=== PATIENT | male | born 1955 | race Caucasian/White ===

== ENCOUNTER → 2018-07-05 13:51 | Outpatient (CLI) | payer OTHER, SELFPAY ==
[2018-07-05 14:58] LABS: Add Manual Diff / Slide Review NO; Basophils Percent Auto 1.2 % (0-2); Eosinophils Percent Auto 2.2 % (2-4); Hematocrit 46.5 % (41-53); Hemoglobin 15.1 g/dL (13.5-17.5); Lymphocytes Percent Auto 18.9 % (25-40); Mean Corpuscular HGB Conc 32.5 % (30-36); Mean Corpuscular Hemoglobin 27.3 PG (26-34); Monocytes Percent Auto 10.7 % (3-14); Neutrophils Absolute Auto 5800 /uL (3000-5900); Platelet Count 278 X10^3/uL (150-400); Red Blood Cell Count 5.54 X10^6/uL (4.5-5.9); Red Cell Distribution Width 14.7 % (11.6-14.8); White Blood Cell Count 8.7 X10^3/uL (4.5-11.0)
[2018-07-05 15:09] LABS: Alanine Aminotransferase 36 IU/L (21-72); Albumin 4.1 g/dL (3.5-5.0); Albumin Globulin Ratio 1.1 (1.0-2.8); Alkaline Phosphatase 114 U/L (38-126); Aspartate Aminotransferase 20 IU/L (17-59); BUN Creatinine Ratio 18.8 (6-22); Bilirubin Total 0.4 mg/dL (0.2-1.3); Blood Urea Nitrogen 15 mg/dL (9-20); Calcium 9.5 mg/dL (8.4-10.2); Carbon Dioxide 26 mmol/L (22-32); Chloride 104 mmol/L (98-107); Estimated Glomerular Filt Rate > 60.0 mL/min (>60); Globulin 3.7 g/dL (1.7-4.1); Glucose 320 mg/dL (80-110); HEMOLYSIS 31 (0-50); Potassium 4.5 mmol/L (3.4-5.1); Sodium 141 mmol/L (137-145); Total Protein 7.8 g/dL (6.3-8.2)
== END ==
PROVIDERS: Family Provider Family Medicine; PCP Family Medicine; Visit Provider Family Medicine
DX: K51.90 Ulcerative colitis, unspecified, without complications (principal)
CPT/HCPCS: 36415; 80053; 85025

== ENCOUNTER → 2019-06-17 14:35 | Outpatient (CLI) | payer OTHER, SELFPAY ==
[2019-06-17 15:33] LABS: Add Manual Diff / Slide Review NO; Basophils Absolute Auto 100 /uL (0-100); Basophils Percent Auto 1.2 % (0-2); Eosinophils Absolute Auto 200 /uL (0-450); Eosinophils Percent Auto 1.4 % (2-4); Hematocrit 45.4 % (41-53); Hemoglobin 14.8 g/dL (13.5-17.5); Lymphocytes Absolute Auto 1800 /uL (1100-4500); Lymphocytes Percent Auto 15.1 % (25-40); Mean Corpuscular HGB Conc 32.5 % (30-36); Mean Corpuscular Volume 83.1 fL (80-100); Monocytes Absolute Auto 800 /uL (0-900); Monocytes Percent Auto 6.7 % (3-14); Neutrophils Absolute Auto 8800 /uL (1500-7000); Neutrophils Percent Auto 75.6 % (50-75); Platelet Count 320 X10^3/uL (150-400); Red Blood Cell Count 5.46 X10^6/uL (4.5-5.9); Red Cell Distribution Width 14.3 % (11.6-14.8); White Blood Cell Count 11.6 X10^3/uL (4.5-11.0)
[2019-06-17 16:01] LABS: Alanine Aminotransferase 21 IU/L (21-72); Albumin Globulin Ratio 1.1 (1.0-2.8); Alkaline Phosphatase 92 U/L (38-126); Aspartate Aminotransferase 16 IU/L (17-59); BUN Creatinine Ratio 22.9 (6-22); Bilirubin Total 0.6 mg/dL (0.2-1.3); Blood Urea Nitrogen 16 mg/dL (9-20); Calcium 9.1 mg/dL (8.4-10.2); Carbon Dioxide 20 mmol/L (22-32); Chloride 103 mmol/L (98-107); Estimated Glomerular Filt Rate > 60.0 mL/min (>60); Globulin 3.8 g/dL (1.7-4.1); Glucose 315 mg/dL (80-110); HEMOLYSIS < 15 (0-50); Potassium 4.9 mmol/L (3.4-5.1); Sodium 135 mmol/L (137-145); Total Protein 7.8 g/dL (6.3-8.2)
== END ==
PROVIDERS: PCP Family Medicine; Visit Provider Physician Assistant
DX: K51.90 Ulcerative colitis, unspecified, without complications (principal)
CPT/HCPCS: 36415; 80053; 85025

== ENCOUNTER → 2019-06-18 07:03 | Outpatient (CLI) | payer OTHER, SELFPAY | LOC: LAB 07:04 | PROVIDERS: PCP Family Medicine; Visit Provider Internal Medicine Gastroenterology | DX: K51.90 Ulcerative colitis, unspecified, without complications (principal) | CPT/HCPCS: 87493 ==

== ENCOUNTER → 2019-08-20 06:49 | Outpatient (CLI) | payer OTHER, SELFPAY ==
[2019-08-31 16:40] LABS: Calprotectin, Stool 398.4 mcg/g
== END ==
PROVIDERS: PCP Family Medicine; Visit Provider Internal Medicine Gastroenterology
DX: K51.90 Ulcerative colitis, unspecified, without complications (principal)
CPT/HCPCS: 83993

== ENCOUNTER → 2019-10-08 06:56 | Outpatient (CLI) | payer OTHER, SELFPAY ==
[2019-10-08 09:45] LABS: Hepatitis B Surface Antigen NEGATIVE s/c (NEGATIVE)
[2019-10-10 15:04] LABS: Hepatitis A Antibody Total Nonreactive (Nonreactive); Hepatitis B Core Antibody Nonreactive (Nonreactive)
[2019-10-10 15:17] LABS: Hepatitis B Surf AB Imm QUANT < 5 mIU/mL (> 9)
[2019-10-12 12:18] LABS: Mitogen-NIL 0.84 IU/mL; NIL 0.01 IU/mL; QuantiFERON TB NEGATIVE (Negative); TB1-NIL < 0.01 IU/mL; TB2-NIL < 0.01 IU/mL
== END ==
LOC: LAB 06:58
PROVIDERS: PCP Family Medicine; Visit Provider Internal Medicine Gastroenterology
DX: K51.90 Ulcerative colitis, unspecified, without complications (principal)
CPT/HCPCS: 36415; 86140; 86480; 86704; 86706; 86708; 87340

== ENCOUNTER 2019-12-27 20:54 | Emergency (ER) | payer OTHER, SELFPAY ==
[2019-12-27 21:01] VITALS: BP 186/100; PULSE 102; RESP 16; TEMP 36.4; O2SAT 98; BMI 42.3
--- NOTE | 2019-12-27 21:06 | ED_ITS ---
HPI - Chest Pain General Chief Complaint: Chest Pain Stated Complaint: heart missing beats Time Seen by Provider: 12/27/19 21:05 Source: patient Mode of arrival: Ambulatory History of Present Illness HPI narrative: 64-year-old gentleman with a history of steroid-dependent ulcerative colitis and factor 5 Leiden deficiency on no anticoagulants presents with an irregular heart rate. He states he began doing the keto diet about 5 days ago and has been doing well with that. As part of his nutrition plan he was simply checking his heart rate and noticed there were some irregularities and was checking his pulse late this afternoon continued after dinner. If he had not specifically checked his pulse he would not have had any symptoms or any recognition that there is anything different. He reports no fever, cough, chills, dyspnea, no change to his baseline lower extremity edema, no change in his bowels. Related Data Allergies Allergy/AdvReac Type Severity Reaction Status Date / Time No Known Allergies Allergy Uncoded 12/27/19 21:03 Review of Systems Review of Systems Narrative: All systems reviewed and are unremarkable except as noted in HPI and below Patient History Medical History Factor V Leiden (Acute) Ulcerative colitis (Acute) tobacco type: vaping Substance Use Type: does not use Exam Narrative Exam Narrative: General: Healthy appearing, in no acute distress. Able to give a complete and coherent history. Well-nourished well-developed HEENT: Moist mucous membranes, normal sclera with reactive pupils, Neck: No JVD, supple Respiratory: Lungs are clear to auscultation, no wheezing no rales no rhonchi. Full and symmetrical air movement Cardiac: Regular rate and rhythm no murmurs no bruits, occasional premature beat Abdomen: Soft nontender good bowel tones, no flank pain Skin: Warm and dry, no rashes Neurologic: Grossly neurologically intact with no obvious asymmetries or abnor malities Extremities: No trauma, well perfused, chronic stable 1+ edema without venous stasis changes Psych: Cooperative, appropriate insight and affect Initial Vital Signs Initial Vital Signs: Vital Signs Temperature 97.6 F 12/27/19 21:01 Pulse Rate 102 H 12/27/19 21:01 Respiratory Rate 16 12/27/19 21:01 Blood Pressure 186/100 H 12/27/19 21:01 Pulse Oximetry 98 12/27/19 21:01 Course Orders Ordered: ED Orders 12/27/19 21:03 EKG-12 Lead Stat 12/27/19 21:05 Complete Blood Count AUTO DIFF Stat Comprehensive Metabolic Panel Stat D Dimer Stat Lipase Stat Troponin & CK Cardiac Panel Stat 12/27/19 21:12 XR chest 1V Stat Vital Signs Vital signs: Vital Signs - 8 hr 12/27/19 21:01 Temperature 97.6 F Pulse Rate 102 H Respiratory Rate 16 Blood Pressure 186/100 H Pulse Oximetry 98 MDM - Chest Pain Lab Data Result diagrams: 12/27/19 21:05 12/27/19 21:05 Labs: Lab Results 12/27/19 12/27/19 12/27/19 Range/Units 21:05 21:05 21:05 WBC 13.9 H (4.5-11.0) X10^3/uL RBC 5.41 (4.5-5.9) X10^6/uL Hgb 11.2 L (13.5-17.5) g/dL Hct 37.0 L (41-53) % MCV 68.4 L (80-100) fL MCH 20.7 L (26-34) PG MCHC 30.4 (30-36) % RDW 18.6 H (11.6-14.8) % Plt Count 352 (150-400) X10^3/uL Neut % (Auto) 69.0 (50-75) % Lymph % (Auto) 19.2 L (25-40) % [place] % (Auto) 9.7 (3-14) % Eos % (Auto) 0.8 L (2-4) % Baso % (Auto) 1.3 (0-2) % Neut # (Auto) 9600 H (1675-9086) /uL Lymph # (Auto) 2700 (0282-7819) /uL [place] # (Auto) 1400 H (0-900) /uL Eos # (Auto) 100 (0-450) /uL Baso # (Auto) 200 H (0-100) /uL RBC Morphology See below Hypochromasia 2+ H Anisocytosis 2+ H Ovalocytes 1+ H D-Dimer 352 H (<230) ng/mL Sodium 139 (137-145) mmol/L Potassium 3.6 (3.4-5.1) mmol/L Chloride 102 (98-107) mmol/L Carbon Dioxide 27 (22-32) mmol/L BUN 20 (9-20) mg/dL Creatinine 0.70 (0.66-1.25) mg/dL Estimated GFR > 60.0 (>60) mL/min BUN/Creatinine Ratio 28.6 H (6-22) Glucose 161 H (80-110) mg/dL Calcium 9.4 (8.4-10.2) mg/dL Total Bilirubin 0.4 (0.2-1.3) mg/dL AST 26 (17-59) IU/L ALT 25 (<50) IU/L Alkaline Phosphatase 62 (38-126) U/L Total Creatine Kinase 64 (55-170) U/L CK-MB (CK-2) TNP CK-MB (CK-2) Rel Index TNP Troponin I < 0.012 (0.01-0.034) ng/mL Total Protein 8.2 (6.3-8.2) g/dL Albumin 4.2 (3.5-5.0) g/dL Globulin 4.0 (1.7-4.1) g/dL Albumin/Globulin Ratio 1.1 (1.0-2.8) Lipase 33 (23-300) U/L D-dimer is age corrected appropriate and suggests low risk for pulmonary embolism Mild leukocytosis without left shift ECG Data Attestation: I personally reviewed and interpreted this ECG as follows: Interpretation: Sinus rhythm at a rate of 96 with occasional PVC. No ischemia. Normal axis MDM Narrative Medical decision making narrative: Patient presents with an irregular heartbeat that he noted while checking his pulse rate. Completely asymptomatic. EKG confirms PVCs. Labs are unremarkable. He is safe for home discharge at this time there is no evidence of acute coronary syndrome, congestive heart failure, pneumothorax, pulmonary embolism, infectious disease as an etiology. Discharge Plan Departure Patient Disposition: Home Clinical Impression: Asymptomatic PVCs Instructions: Premature Ventricular Beats Activity Restrictions/Additional Instructions: Thank you for coming in this evening. It is very reasonable to have an irregular heartbeat checked out. Fortunately, you're having PVCs (premature ventricular contractions). These are not a sign of any impending worsening symptoms or heart attack. They can be annoying if you can feel the extra beats. They are not dangerous. We did do a thorough workup for additional cardiac issues, blood clots and infection and found no evidence of any of these things this evening. It is safe for you to go home. You may continue to notice an irregular heart rate and as long as you are not short of breath, developing chest pain or other symptoms it is okay to simply ignore these. I wish you the best Referrals: Mart Ramos MD [Primary Care Provider] -
--- NOTE | 2019-12-27 21:12 | DI.RAD.S_ITS ---
PROCEDURE: XR CHEST 1V INDICATIONS: palpitations TECHNIQUE: One view of the chest was acquired. COMPARISON: None. FINDINGS: Surgical changes and devices: None. Lungs and pleura: Lungs are abnormal with a mild interstitial prominence. Left lung volume appears large, right lung volume is less pronounced and partially reduced by mild elevation of the right hemidiaphragm.. No pleural effusions or pneumothorax. Mediastinum: Mediastinal contours appear normal. Heart size is normal. Bones and chest wall: No suspicious bony lesions. Overlying soft tissues appear unremarkable. IMPRESSION: No pneumonia found. Suspect COPD. Prior smoking history is the likely cause for the airspace findings of mild interstitial prominence in the setting of relatively large lung volumes. Dictated by: Roberto Carlos Matthews M.D. on 12/27/2019 at 21:46 Approved by: Roberto Carlos Matthews M.D. on 12/27/2019 at 21:47
--- NOTE | 2019-12-27 21:14 | PC.NURSE ---
Pt denies any chest pain, states when checked pulse in wrist felt heart skipping. denies any feelings in chest. Denies dizziness, denies any cardiac history.
[2019-12-27 21:28] LABS: Add Manual Diff / Slide Review NO; Basophils Absolute Auto 200 /uL (0-100); Basophils Percent Auto 1.3 % (0-2); Eosinophils Absolute Auto 100 /uL (0-450); Eosinophils Percent Auto 0.8 % (2-4); Hemoglobin 11.2 g/dL (13.5-17.5); Lymphocytes Absolute Auto 2700 /uL (1100-4500); Lymphocytes Percent Auto 19.2 % (25-40); Mean Corpuscular HGB Conc 30.4 % (30-36); Mean Corpuscular Hemoglobin 20.7 PG (26-34); Mean Corpuscular Volume 68.4 fL (80-100); Monocytes Absolute Auto 1400 /uL (0-900); Monocytes Percent Auto 9.7 % (3-14); Neutrophils Absolute Auto 9600 /uL (1500-7000); Platelet Count 352 X10^3/uL (150-400); Red Blood Cell Count 5.41 X10^6/uL (4.5-5.9); Red Cell Distribution Width 18.6 % (11.6-14.8); White Blood Cell Count 13.9 X10^3/uL (4.5-11.0)
[2019-12-27 21:31] LABS: Alanine Aminotransferase 25 IU/L (<50); Albumin 4.2 g/dL (3.5-5.0); Albumin Globulin Ratio 1.1 (1.0-2.8); Alkaline Phosphatase 62 U/L (38-126); Aspartate Aminotransferase 26 IU/L (17-59); BUN Creatinine Ratio 28.6 (6-22); Bilirubin Total 0.4 mg/dL (0.2-1.3); Blood Urea Nitrogen 20 mg/dL (9-20); Calcium 9.4 mg/dL (8.4-10.2); Carbon Dioxide 27 mmol/L (22-32); Chloride 102 mmol/L (98-107); Creatine Kinase 64 U/L (55-170); Estimated Glomerular Filt Rate > 60.0 mL/min (>60); Glucose 161 mg/dL (80-110); HEMOLYSIS < 15 (0-50); Lipase 33 U/L (23-300); Potassium 3.6 mmol/L (3.4-5.1); Sodium 139 mmol/L (137-145); Total Protein 8.2 g/dL (6.3-8.2)
[2019-12-27 21:34] LABS: D Dimer 352 ng/mL (<230)
[2019-12-27 21:43] LABS: Troponin I < 0.012 ng/mL (0.01-0.034)
[2019-12-27 21:45] LABS: Anisocytosis 2+; Hypochromasia 2+; Ovalocytes 1+
[2019-12-27 22:30] VITALS: BP 135/75; PULSE 87; RESP 14; O2SAT 96
== END 2019-12-27 22:03 | disposition home or self-care (01) ==
PROVIDERS: Emergency Provider Emergency Medicine; PCP Family Medicine
DX: I49.3 Ventricular premature depolarization (principal); K51.90 Ulcerative colitis, unspecified, without complications; D68.51 Activated protein C resistance
CPT/HCPCS: 36415; 71045; 80053; 82550; 83690; 84484; 85025; 85379; 93005; 99284

== ENCOUNTER 2020-01-25 23:14 | Inpatient (IN) | payer OTHER, SELFPAY ==
[2020-01-25 23:22] VITALS: BP 173/91; PULSE 115; RESP 22; TEMP 36.4; O2SAT 95; BMI 39.4
--- NOTE | 2020-01-25 23:34 | DI.CT.S_ITS ---
PROCEDURE: CT ABDOMEN PELVIS W CON INDICATIONS: periumbilical severe pain TECHNIQUE: After the administration of intravenous contrast, 5 mm thick sections acquired from the diaphragm to the symphysis. 5 mm coronal and sagittal reformats were acquired. For radiation dose reduction, the following was used: automated exposure control, adjustment of mA and/or kV according to patient size. COMPARISON: None. FINDINGS: Image quality: Excellent. ABDOMEN: Lung bases: Lung bases are clear. Heart size is normal. Solid organs: Liver is normal in size and enhancement. Gallbladder contains multiple calcified gallstones, a number of which measure slightly greater than 1 cm in diameter. Biliary system is non dilated. Pancreas enhances normally. Spleen is normal in size and enhancement. No adrenal nodules. Kidneys demonstrate normal size and enhancement, without hydronephrosis. There is a 4 mm nonobstructing right lower pole stone. Peritoneum and bowel: An incarcerated loop of small bowel in a very small periumbilical hernia results in early small bowel obstruction. The small bowel loops are dilated to 3.4 cm. Nodes and vessels: No retroperitoneal or mesenteric adenopathy by size criteria. Aorta and inferior vena cava are normal in size. Miscellaneous: A small periumbilical hernia contains a single loop of incarcerated small bowel resulting in small bowel obstruction. There is very mild inflammatory change in the surrounding fat. PELVIS: Genitourinary: Bladder wall thickness is normal. There is a small posterior lateral left diverticulum of the bladder. Miscellaneous: No inguinal hernias or adenopathy. Bones: No suspicious bony lesions. No vertebral body compression fractures. IMPRESSION: 1. There is a very small periumbilical hernia containing incarcerated small bowel resulting in early small bowel obstruction. 2. Cholelithiasis. 3. Incidental right renal stone. Comment: Final report is concordant with preliminary interpretation provided by [facility]. Dictated by: Manuelito Jackson M.D. on 01/26/2020 at 8:04 Approved by: Manuelito Jackson M.D. on 01/26/2020 at 8:07
[2020-01-26] VITALS (24 sets, daily range): BP systolic 135–187; BP diastolic 71–99; PULSE 74–107; RESP 13–23; TEMP 36.2–37.3; O2SAT 86–97; BMI 39.4; BMI 40.6
--- NOTE | 2020-01-26 | PATH_ITS ---
[facility] Accession Number: [id number] . 01 Material submitted: . small bowel - SMALL BOWEL SEGMENT . 01 Clinical history: . LUMP IN LOWER STOMACH PAIN . 02 Diagnosis: Small Bowel, Segmental Resection: Segment of small bowel with ischemic enteritis. Histologically viable margins of resection. No evidence of neoplasm. [facility] 01/28/2020 1204 Local . 02 Electronically signed: . Miko Grider MD, PhD, Pathologist NPI- [id number] . 01 Gross description: . Received in formalin, labeled small bowel segment, is an unoriented segment of small bowel (length-11.7 cm, resection margin #1 diameter-2.0 cm, resection margin #2 diameter-2.7 cm) with attached adipose tissue (up to 2.5 cm in depth). The resection margins are received stapled. The serosa is pale tee and focally dark red-brown. The mucosa is tee and focally dark red-brown with normal folds and flattened areas. The dark red-brown area (approximately 6.5 cm long) is thin and semi-translucent. No nodules, masses or lesions are identified. The resection margins are inked blue. Section code: (A1) resection margin #1, longitudinal business office representative; (A2) resection margin #2, business office representative longitudinal sections; (A3, A4) business office representative serial sections submitted from resection margin #1 to #2. ([id number]) /V 01/27/2020 1242 Local . 02 Pathologist provided ICD-10: K55.9 . 02 CPT . 269019 Performed at: [address], [place], [place] [id number] MD Juan Moe MD Phone: [phone] Performed at: 02 [facility] [address] [place] [id number] MD Amanda Navarrete MD Phone: [phone]
[2020-01-26] MEDS: MORPHINE 4 MG/ML INJ IV ×2 (00:01→01:29)
[2020-01-26 00:02] LABS: Add Manual Diff / Slide Review NO; Basophils Absolute Auto 100 /uL (0-100); Basophils Percent Auto 0.6 % (0-2); Eosinophils Absolute Auto 100 /uL (0-450); Eosinophils Percent Auto 0.5 % (2-4); Hematocrit 39.2 % (41-53); Hemoglobin 11.7 g/dL (13.5-17.5); Lymphocytes Absolute Auto 1100 /uL (1100-4500); Mean Corpuscular HGB Conc 29.9 % (30-36); Mean Corpuscular Volume 66.9 fL (80-100); Monocytes Absolute Auto 1400 /uL (0-900); Monocytes Percent Auto 7.6 % (3-14); Neutrophils Absolute Auto 15900 /uL (1500-7000); Neutrophils Percent Auto 85.3 % (50-75); Platelet Count 354 X10^3/uL (150-400); Red Blood Cell Count 5.86 X10^6/uL (4.5-5.9); Red Cell Distribution Width 19.5 % (11.6-14.8); White Blood Cell Count 18.7 X10^3/uL (4.5-11.0)
[2020-01-26] MEDS: SODIUM CHLORIDE 0.9% 1,000 ML 1000 ML IV (00:02)
[2020-01-26] MEDS: ONDANSETRON 4 MG/2 ML INJ IV (00:02)
--- NOTE | 2020-01-26 00:09 | ED.ABDPAIN ---
HPI - Abdominal Pain General Chief Complaint: Abdominal Pain Stated Complaint: Lump in lower stomach pain Time Seen by Provider: 01/25/20 23:25 Source: patient Mode of arrival: Ambulatory Limitations: no limitations History of Present Illness HPI narrative: HPI: The patient is a 64-year-old male who has a history of ulcerative colitis presents to the emergency department with severe periumbilical abdominal pain. He describes the pain as a spastic cramp that is sharp in nature. The pain occurs intermittently and is 10/10 in intensity. He stated that the pain started on Sunday and lasted approximately 3-5 hours after which it resolved spontaneously. He was pain-free until today when he redevelop the pain and discomfort. He denies that the pain radiates anywhere. He is unaware having any hernias. He denies any surgical incisions on his abdomen. He has had no recent fall or injury. He denies smoking cigarettes but vapors. He does not drink alcohol or use any marijuana. He works as a behavioral health counselor. He denies a history of pancreatitis diabetes mellitus hypertension stroke myocardial infarction COPD asthma. He has not had his gallbladder or appendix removed. He denies any fever chills sweats headache nasal drainage sinus congestion sore throat shortness of breath cough chest pain vomiting diarrhea melena hematochezia but has had nausea. His last bowel movement was 2 days ago and normal. He denies any urinary symptoms. Related Data Allergies Allergy/AdvReac Type Severity Reaction Status Date / Time No Known Allergies Allergy Uncoded 01/26/20 01:20 Review of Systems Review of Systems Narrative: His review of systems were all negative except for those mentioned in the history of present illness. Patient History Medical History Factor V Leiden (Acute) Ulcerative colitis (Acute) tobacco type: vaping alcohol intake frequency: 0-2 drinks per day Substance Use Type: does not use Exam Narrative Exam Narrative: PHYSICAL EXAM: CONSTITUTIONAL: Awake, Alert, Oriented, Coherent, Cooperative lying supine in bed with intermittent grimacing of the face when he develops spastic pain and discomfort in his periumbilical region. The patient is obese. The patient ambulated into the emergency department into his room slowly. HEAD: AT/NC EENT: PERRL, FROM of eyes, no discharge, No epistaxis or nasal drainage Oral mucosa is moist and pink, posterior pharynx is without erythema or exudate. NECK: The patient is a very short neck bed is Supple, without any obvious JVD, Trachea is midline without stridor, no palpable LN or masses. SPINE: No gross deformity, no palpable tenderness of the cervical, thoracic or lumbar spine. There was no costovertebral angle tenderness. THORAX: No deformity, retractions, chest wall tenderness. AP diameter is increased. LUNGS: Clear with symmetrical breath sounds without respiratory distress HEART: Normal heart tones, regular rhythm and rate without murmur. ABDOMEN: Soft, with a tender lump in the superior margins of his umbilicus. There was no specific defect in the umbilicus that was palpable. There was no other organomegaly or abdominal tenderness. EXTREMITIES: There was no appreciable pretibial edema or posterior calf tenderness. SKIN: No rash, bruising, petechiae or purpura. NEURO: Awake, alert, oriented, conversive, there was no focal facial asymmetry : cranial nerves II-XII are symmetrical and moves all 4 extremities and is ambulatory Initial Vital Signs Initial Vital Signs: Vital Signs Temperature 97.5 F L 01/25/20 23:22 Pulse Rate 115 H 01/25/20 23:22 Respiratory Rate 22 01/25/20 23:22 Blood Pressure 173/91 H 01/25/20 23:22 Pulse Oximetry 95 01/25/20 23:22 Course Course Course Narrative: 0044 the patient's white blood count is 18.7, neutrophils are 15.9, GFR is greater than 60, lipase is 18, the CT scan has been completed but the report remains pending. 0100 radiology called with a critical value indicating that the patient has a periumbilical ventral wall hernia that contains small bowel and has a small-bowel obstruction. I will notify the general surgeon. Will call the general surgeon application services manager, Dr. Weeks to inform him of the CT findings 0111 I discussed the patient with Dr. Weeks , who advised admitting the patient to him by holding the patient in the emergency department for him to take directly to surgery probably in approximately 1 hour. Nursing staff informed. 0122; the patient states that he last ate at approximately 5:00 p.m. yesterday. Radiology submitted an addendum to the report discussed with me. The patient has moderate small bowel distension noted beginning in the proximal jejunum. It extends to the point of a small periumbilical hernia in the midline. This appears to be the site of a partial small bowel obstruction with small bowel hernia into the abdominal wall. The patient also has cholelithiasis without gallbladder distension. Dr. Weeks came into evaluate the patient and take the patient to surgery. Orders Ordered: ED Orders 01/25/20 23:34 CT abdomen pelvis w con Stat EKG-12 Lead Stat 01/25/20 23:50 Complete Blood Count AUTO DIFF Stat Comprehensive Metabolic Panel Stat Lipase Stat Discontinued Medications Sodium Chloride (Normal Saline 0.9%) 1,000 mls @ 1,000 mls/hr IV BOLUS ONE Stop: 01/26/20 00:33 Last Infusion: 01/26/20 01:05 Dose: 0 mls/hr Documented by: Admin: 01/26/20 00:02 Dose: 1,000 mls/hr Documented by: DANY Piperacillin/Tazobactam/Dextrose (Zosyn) 4.5 gm in 100 mls @ 200 mls/hr IV NOW ONE Stop: 01/26/20 01:36 Last Infusion: 01/26/20 02:18 Dose: 0 mls/hr Documented by: Admin: 01/26/20 01:19 Dose: 200 mls/hr Documented by: DANY Lactated Ringer's (Lactated Ringers) 1,000 mls @ 150 mls/hr IV CONT MITCHELL Last Infusion: 01/26/20 02:17 Dose: 0 mls/hr Documented by: Admin: 01/26/20 01:29 Dose: 150 mls/hr Documented by: DANY Morphine Sulfate (Morphine) 4 mg IV NOW ONE Stop: 01/25/20 23:35 Last Admin: 01/26/20 00:01 Dose: 4 mg Documented by: DANY Morphine Sulfate (Morphine) 4 mg IV NOW ONE Stop: 01/26/20 01:22 Last Admin: 01/26/20 01:29 Dose: 4 mg Documented by: DANY Ondansetron HCl (Zofran) 4 mg IV NOW ONE Stop: 01/25/20 23:35 Last Admin: 01/26/20 00:02 Dose: 4 mg Documented by: DANY Vital Signs Vital signs: Vital Signs - 8 hr 01/25/20 23:22 01/26/20 00:35 01/26/20 00:52 Temperature 97.5 F L Pulse Rate 115 H 99 H Respiratory Rate 22 20 Blood Pressure 173/91 H Blood Pressure [Right Arm] 160/99 H Pulse Oximetry 95 94 97 01/26/20 01:34 Temperature Pulse Rate 101 H Respiratory Rate 23 Blood Pressure Blood Pressure [Right Arm] 187/93 H Pulse Oximetry 97 MDM - Abdominal Pain Medical Records Attestation: I reviewed the patient's medical records. Lab Data Attestation: I reviewed the patient's lab results. Result diagrams: 01/25/20 23:50 01/25/20 23:50 Labs: Lab Results 01/25/20 01/25/20 Range/Units 23:50 23:50 WBC 18.7 H (4.5-11.0) X10^3/uL RBC 5.86 (4.5-5.9) X10^6/uL Hgb 11.7 L (13.5-17.5) g/dL Hct 39.2 L (41-53) % MCV 66.9 L (80-100) fL MCH 20.0 L (26-34) PG MCHC 29.9 L (30-36) % RDW 19.5 H (11.6-14.8) % Plt Count 354 (150-400) X10^3/uL Neut % (Auto) 85.3 H (50-75) % Lymph % (Auto) 6.0 L (25-40) % [place] % (Auto) 7.6 (3-14) % Eos % (Auto) 0.5 L (2-4) % Baso % (Auto) 0.6 (0-2) % Neut # (Auto) 03944 H (7220-6294) /uL Lymph # (Auto) 1100 (8881-4792) /uL [place] # (Auto) 1400 H (0-900) /uL Eos # (Auto) 100 (0-450) /uL Baso # (Auto) 100 (0-100) /uL RBC Morphology See below Hypochromasia 2+ H Poikilocytosis 1+ H Anisocytosis 1+ H Microcytosis 1+ H Sodium 138 (137-145) mmol/L Potassium 3.6 (3.4-5.1) mmol/L Chloride 101 (98-107) mmol/L Carbon Dioxide 27 (22-32) mmol/L BUN 18 (9-20) mg/dL Creatinine 0.86 (0.66-1.25) mg/dL Estimated GFR > 60.0 (>60) mL/min BUN/Creatinine Ratio 20.9 (6-22) Glucose 208 H (80-110) mg/dL Calcium 9.5 (8.4-10.2) mg/dL Total Bilirubin 0.6 (0.2-1.3) mg/dL AST 38 (17-59) IU/L ALT 59 H (<50) IU/L Alkaline Phosphatase 73 (38-126) U/L Total Protein 8.4 H (6.3-8.2) g/dL Albumin 4.5 (3.5-5.0) g/dL Globulin 3.9 (1.7-4.1) g/dL Albumin/Globulin Ratio 1.2 (1.0-2.8) Lipase 18 L (23-300) U/L Discharge Plan Departure Patient Disposition: Admitted as Observation Clinical Impression: Acute periumbilical pain, Ventral hernia with bowel obstruction Ulcerative colitis Qualifiers: Ulcerative colitis location: unspecified ulcerative colitis location Digestive disease complication type: unspecified complication Qualified Code(s): K51.919 - Ulcerative colitis, unspecified with unspecified complications Cholelithiasis Qualifiers: Cholelithiasis location: gallbladder Cholecystitis presence: without cholecystitis Biliary obstruction: without biliary obstruction Qualified Code(s): K80.20 - Calculus of gallbladder without cholecystitis without obstruction Discharge Date/Time: 01/26/20 02:19 Referrals: Mart Ramos MD [Primary Care Provider] - ED Sign-out Cosign ED Attending Cosignature Attestation: I was immediately available in the department for consultation. This documentation has been reviewed and I agree with assessment and plan. Supervised by Kulwant Barrera MD
[2020-01-26 00:13] LABS: Alanine Aminotransferase 59 IU/L (<50); Albumin 4.5 g/dL (3.5-5.0); Albumin Globulin Ratio 1.2 (1.0-2.8); Alkaline Phosphatase 73 U/L (38-126); Aspartate Aminotransferase 38 IU/L (17-59); BUN Creatinine Ratio 20.9 (6-22); Bilirubin Total 0.6 mg/dL (0.2-1.3); Blood Urea Nitrogen 18 mg/dL (9-20); Calcium 9.5 mg/dL (8.4-10.2); Carbon Dioxide 27 mmol/L (22-32); Chloride 101 mmol/L (98-107); Estimated Glomerular Filt Rate > 60.0 mL/min (>60); Globulin 3.9 g/dL (1.7-4.1); Glucose 208 mg/dL (80-110); HEMOLYSIS < 15 (0-50); Lipase 18 U/L (23-300); Potassium 3.6 mmol/L (3.4-5.1); Sodium 138 mmol/L (137-145); Total Protein 8.4 g/dL (6.3-8.2)
[2020-01-26 00:30] LABS: Anisocytosis 1+; Hypochromasia 2+; Poikilocytosis 1+
[2020-01-26 00:31] LABS: Microcytosis 1+
[2020-01-26] MEDS: PIPERACILLIN-TAZO 4.5 GM/100 ML FROZ.PIGGY IV (01:19)
[2020-01-26] MEDS: LACTATED RINGERS 1,000 ML 150 ML IV (01:29)
--- NOTE | 2020-01-26 01:39 | PC.NURSE ---
patient ambulated self into ED. States he had severe abdominal pain several days ago that resolved on his own. today the pain reoocured and the patient noticed a bump under his skin above his bellybutton. Patient states last meal about 5pm last night.
--- NOTE | 2020-01-26 01:54 | PM.HP.1 ---
History of Present Illness History of Present Illness Date Patient Seen: 01/26/20 Time Patient Seen: 01:55 Chief complaint: Lump in lower stomach pain Narrative: Vic is a 64M who presented with a small bowel obstruction secondary to an incarcerated ventral hernia. Developed abdominal pain midline superior to umbilicus over the past 72 hours and becoming increasingly severe for the past 6 hrs. Associated with nausea, no emesis, no bowel movement or flatus. No prior midline incision. WBC [address] demonstrates small bowel within a ventral hernia with associated SBO. Past medical significant for Ulcerative colitis, Obesity, factor 5 Liden. Patient History Medical History Factor V Leiden (Acute) Ulcerative colitis (Acute) Family & Social History Safety & Behavioral: Feels Safe in Current Yes Environment Tobacco & Substance use: alcohol intake frequency 0-2 drinks per day Substance Use Type does not use Meds Home Medications and Allergies Allergies Allergy/AdvReac Type Severity Reaction Status Date / Time No Known Allergies Allergy Uncoded 01/26/20 01:20 Review of Systems Review of Systems Narrative: A 10 point review of systems is negative except as noted in the HPI Exam Vital Signs (past 8 hours): - 01/25/20 23:22 01/26/20 00:35 01/26/20 00:52 Temperature 97.5 F L Pulse Rate 115 H 99 H Respiratory Rate 22 20 Blood Pressure 173/91 H Blood Pressure [Right Arm] 160/99 H Pulse Oximetry 95 94 97 01/26/20 01:34 Temperature Pulse Rate 101 H Respiratory Rate 23 Blood Pressure Blood Pressure [Right Arm] 187/93 H Pulse Oximetry 97 Oxygen Delivery Method Room Air Oxygen Flow Rate 2 Narrative Exam Narrative: General-no acute distress, obese male HEENT-moist mucous membranes, no scleral icterus Neck-supple, no lymphadenopathy Chest- non labored respirations, clear to auscultation bilaterally Cardiac-regular rate no peripheral edema Abdomen-supraumbilical ventral hernia without peritonitis unable to reduce Extremities-warm, well perfused Neurological-alert and oriented, no focal deficits Objective Labs Result Diagrams: 01/25/20 23:50 01/25/20 23:50 Labs: Laboratory Results - last 24 hr 01/25/20 01/25/20 23:50 23:50 WBC 18.7 H RBC 5.86 Hgb 11.7 L Hct 39.2 L MCV 66.9 L MCH 20.0 L MCHC 29.9 L RDW 19.5 H Plt Count 354 Neut % (Auto) 85.3 H Lymph % (Auto) 6.0 L [place] % (Auto) 7.6 Eos % (Auto) 0.5 L Baso % (Auto) 0.6 Neut # (Auto) 93729 H Lymph # (Auto) 1100 [place] # (Auto) 1400 H Eos # (Auto) 100 Baso # (Auto) 100 RBC Morphology See below Hypochromasia 2+ H Poikilocytosis 1+ H Anisocytosis 1+ H Microcytosis 1+ H Sodium 138 Potassium 3.6 Chloride 101 Carbon Dioxide 27 BUN 18 Creatinine 0.86 Estimated GFR > 60.0 BUN/Creatinine Ratio 20.9 Glucose 208 H Calcium 9.5 Total Bilirubin 0.6 AST 38 ALT 59 H Alkaline Phosphatase 73 Total Protein 8.4 H Albumin 4.5 Globulin 3.9 Albumin/Globulin Ratio 1.2 Lipase 18 L Assessment & Plan Assessment & Plan narrative: Vic is a 64-year-old male who is presenting with an incarcerated ventral hernia and associated small-bowel obstruction. I reviewed his CT which demonstrates ventral hernia and associated small bowel obstruction and laboratory studies are significant for a white blood cell count 19. I am unable to reduce the hernia. Open ventral hernia repair possible-bowel resection is indicated. I discussed the risks of the operation with him including bleeding infection recurrence anastomotic leak and the expected postoperative recovery. I told him I will examination of the viability of the small bowel should it be compromised he will require bowel resection. Repair of the ventral hernia will depend on the size of the defect and whether not bowel resection is required may or may not be repaired with mesh. His questions have been answered he is in agreement with this plan.
[2020-01-26] MEDS: LACTATED RINGERS 1,000 ML 42 ML IV ×2 (02:30→04:21)
--- NOTE | 2020-01-26 02:39 | OP_ITS ---
Operative Date/Time/Diagnoses Date of procedure: 01/26/20 Time of procedure: 04:16 Pre-op diagnosis: Incarcerated ventral Post-op diagnosis: other (Ischemic small bowel) Procedure & Clinicians Procedure: Exploratory laparotomy Small-bowel resection Ventral hernia repair Same procedure as scheduled: Yes Indications: Patient presented with a small-bowel obstruction and incarcerated ventral hernia Surgeon: Robi Weeks Click Yes if Unassisted: Yes Anesthesia Type: General Operative Notes Findings: Infarcted small bowel mid small bowel 6 cm length. Appearance of bowel consistent with chronic steroid use Specimen(s): other (Small-bowel) Estimated Blood Loss (mL): 30 Procedure in detail: Patient was brought to the operating room placed supine on the table. Bilateral lower extremity compression devices were applied. He received 3.375 g of Zosyn prior to skin incision. General anesthesia was then was induced and he was intubated with an endotracheal tube. He was prepped and draped in sterile fashion. Time-out performed ensure the correct patient procedure necessary equipment within the 1st operating room. I began with a midline supraumbilical incision. The skin subcutaneous tissues were divided. There was a knuckle of dark appearing small bowel within the midline fascia. Made the incision superiorly and entered the abdomen above this carefully elevating the fascia and sharply incising it with the knife. The abdomen was entered atraumatically. I then open the midline inferiorly towards the incarcerated small bowel. With this complete I reduced the small bowel and inspection demonstrated an infarcted 6 cm segment of mid small bowel. Healthy bowel proximal and distal to the infarction was selected and a window within the mesentery was made the bowel was divided with the Endo-MIKE stapler blue load. The segment of infarcted bowel was then resected along its mesentery using the LigaSure device passed off the field as specimen labeled small bowel. Approximating silk sutures were then placed between the 2 pieces of small bowel to form a [id number] anastomosis. An enterotomy was made in each limb of the small bowel and then a common channel was created using a 3rd load of the Endo- MIKE stapler. Inspection of the anastomosis demonstrated hemostasis as well as widely patent. I then closed the common channel using a running 3 0 PDS suture. The anastomotic line was then imbricated in a Lembert fashion using silk suture. The mesenteric defect was then closed using silk suture as well. The small bowel was then returned to the abdomen in its normal anatomical position the abdomen was irrigated using 2 L of sterile saline. The lavage came back clear. Hemostasis was achieved. Then closed the midline fascia using a running 1. PDS suture. Subcutaneous tissue was then reapproximated using 3 0 Vicryl skin closed with hair. Patient tolerated the procedure well he was extubated and transferred to the recovery room in stable condition. Complications: none Post-operative Condition: stable Disposition: Acute Care Signed By:<Electronically signed by Robi Weeks MD>01/26/20 0426
[2020-01-26] MEDS: ACETAMINOPHEN IV 1,000 MG/100 ML VIAL 400 MG IV (03:10)
--- NOTE | 2020-01-26 03:14 | SUR.OPER ---
Supine on padded OR bed, head on pillow, arms secured on padded arm boards at <90 degrees abduction, legs uncrossed, safety belt at thigh, tape over blanket over lower legs.
[2020-01-26] MEDS: BUPIVACAINE 0.25% (PF) VIAL 30 ML INJ (03:34)
--- NOTE | 2020-01-26 04:44 | SUR.PHASEI ---
Stable pacu stay, receiving rn unavailable, will call back fro report.
--- NOTE | 2020-01-26 04:54 | SUR.PHASEI ---
Pt came to PACU with NGT, attached to LIS, clear pale pink fluid, scant amount back.
--- NOTE | 2020-01-26 05:05 | SUR.PHASEI ---
RN still not available for report, RN Coordinator informed we would do face to face report in room.
--- NOTE | 2020-01-26 05:25 | SUR.PHASEI ---
Pt transported up to room 216. Left with Darlyn in stable condiiton. Pt placed on 3/l nasal cannula 02.
[2020-01-26] MEDS: HYDROMORPHONE 0.5 MG INJ IV ×3 (11:07→23:19)
[2020-01-26] MEDS: LACTATED RINGERS 1,000 ML 125 ML IV ×2 (11:07→18:35)
--- NOTE | 2020-01-26 11:52 | CM.DANOTE ---
Addendum entered by Kenyetta Beaulieu R.N. 01/27/20 13:25: Spoke to Carmen Thompson Mentioned that patient could benefit from inpatient rehab. Speech will be working with patient as well. Called Monie at [facility], rehab inpatient. Stated, patient could be a good candidate for rehab. Went ahead and faxed over latest P.T. notes, face sheet, prog notes, and H&P. She will review and updated this nurse outreach case manager. Original Note: DCP: Case received, EMR reviewed, and checked on patient. Patient sleeping at this time, post surgery. Has NG tube in place. DCP assessment was completed with information obtained by medical record. Patient is a 64 year old male who admitted early this morning to the care of the hospitalist/surgical team. PCP: Dr. Ramos. Payer: confirmed: [employer]. Patient came to the hospital via family vehicle secondary to lower abdominal pain, and lump in the lower abdominal area. Patient holds diagnosis of incarcerated ventral hernia, as well as bowel obstruction. Patient had surgery early this morning, and is currently sleeping. He has NG tube in place. Patient resides in [place], and is employed at [employer] in [facility], according to notes. There is a family member named Manny Maier as contact listed, but unclear at this time what relationship is. Patient was ambulatory in ER, but with difficulty, due to pain. P: DCP to continue to follow closely, and will be available for any resources needed. Kenyetta Beaulieu RN/Eating Disorder Psychologist
[2020-01-26] MEDS: KETOROLAC 30 MG/ML VIAL IV ×2 (12:57→21:08)
[2020-01-26] MEDS: ENOXAPARIN 40 MG/0.4 ML SYRINGE SUBCUT (12:57)
[2020-01-26] MEDS: predniSONE 5 MG TABLET 15 MG PO (12:57)
--- NOTE | 2020-01-26 23:36 | PC.NURSE ---
Addendum entered by Liat Hartman R.N. 01/27/20 06:29: Noted puddle of gastric contents on floor beside bed; leakage from pigtail; flushed with air to clear pigtail. NG put out 400cc plus what was on floor. Addendum entered by Liat Hartman R.N. 01/27/20 05:52: States pain is currently 5/10 but declines IV Dilaudid; medicated with scheduled Toradol. Addendum entered by Liat Hartman R.N. 01/26/20 23:58: Noted to desat to 88% when asleep; mouth breathing. Oxygen increased to 2L/min. Original Note: Patient is alert and oriented. Breath sounds diminished throughout; oxygen at 1L/min per NC with sat of 96%. HRR. BP elevated at 142/71. Denies nausea. NG to LIS with brown/green liquid in cannister. BT present but denies flatus. Abdomen is tender and slightly distended but soft. Denies dysuria, frequency or urgency; voiding per urinal. Dressing to midline abdomen is CDI. Complains of 5/10 soreness at incisional site; medicated with Dilaudid. Able to turn self in bed. Wearing bilateral SCD's. NPO except for ice chips. Fall risk score is moderate; bed alarm is activated.
[2020-01-27] VITALS (14 sets, daily range): BP systolic 113–158; BP diastolic 61–88; PULSE 76–92; RESP 16–20; TEMP 36.2–37.1; O2SAT 92–97
[2020-01-27] MEDS: LACTATED RINGERS 1,000 ML 125 ML IV ×2 (02:44→09:33)
[2020-01-27] MEDS: KETOROLAC 30 MG/ML VIAL IV ×3 (05:50→21:25)
[2020-01-27] MEDS: ENOXAPARIN 40 MG/0.4 ML SYRINGE SUBCUT (09:33)
[2020-01-27] MEDS: predniSONE 5 MG TABLET 15 MG PO (09:35)
--- NOTE | 2020-01-27 09:51 | PC.NURSE ---
Addendum entered by Jessica Matute R.N. 01/27/20 12:26: NG removed by Dr Weeks, Patient started on clear liquids. Original Note: Patient alert, oriented rates abdominal pain 5/10, declines pain medicine at this time. BT+ no flatus. NG clamped for four hours per Dr Weeks. Patient ambulated in alvarado with SBA gait steady.
--- NOTE | 2020-01-27 12:22 | P.PN_ITS ---
Subjective Subjective Date Patient Seen: 01/27/20 Time Patient Seen: 12:22 Interval history: + flatus. Performed clamp trial this morning for 4 hours no nausea. Ambulating pain is well controlled Exam Vital Signs (past 8 hours): - 01/27/20 05:45 01/27/20 07:43 01/27/20 08:00 Temperature 97.9 F 98.0 F Pulse Rate 76 85 Respiratory Rate 19 18 Blood Pressure 158/88 H 121/80 Pulse Oximetry 92 97 93 01/27/20 11:00 01/27/20 11:30 Temperature 97.4 F L Pulse Rate 83 Respiratory Rate 20 Blood Pressure 122/79 Pulse Oximetry 94 94 Oxygen Delivery Method Room Air Oxygen Flow Rate 0 Narrative Exam Narrative: General adult male alert oriented no acute distress Abdomen soft appropriately tender to palpation incision clean dry intact with hair Objective Labs Result Diagrams: 01/25/20 23:50 01/25/20 23:50 Assessment & Plan Post-op Postoperative Procedures: Procedures Operation Date: 01/26/20 14:30 Actual Procedures Side Surgeon p Laparotomy, Small Bowel Resection, ventral hernia repair Robi Weeks MD Postoperative status narrative: Vic is a 64-year-old male with morbid obesity ulcer colitis who presented with an incarcerated ventral hernia small-bowel obstruction. Postoperative day 1 status post exploratory laparotomy small bowel resection for infarcted small bowel. He has return of bowel function nasogas tric tube has been removed. -clear liquid diet -out of bedside chair ambulate -SCDs and Lovenox for VTE prophylaxis Quality VTE Deep Vein Thrombosis/Pulmonary Embolism Present on Admission: Yes
[2020-01-27] MEDS: HYDROMORPHONE 0.5 MG INJ IV ×2 (13:56→17:45)
[2020-01-27] MEDS: SODIUM CHLORIDE 0.9% FLUSH 10 ML IV (21:26)
[2020-01-28] MEDS: KETOROLAC 30 MG/ML VIAL IV (05:34)
[2020-01-28 06:00] VITALS: BP 122/69; PULSE 79; RESP 16; TEMP 36.7; O2SAT 97
[2020-01-28 08:00] VITALS: BP 140/84; PULSE 70; RESP 16; TEMP 36.8; O2SAT 97
[2020-01-28 08:10] VITALS: O2SAT 97
[2020-01-28] MEDS: predniSONE 5 MG TABLET 15 MG PO (08:20)
[2020-01-28] MEDS: ENOXAPARIN 40 MG/0.4 ML SYRINGE SUBCUT (08:20)
[2020-01-28] MEDS: SODIUM CHLORIDE 0.9% FLUSH 10 ML IV (08:21)
[2020-01-28] MEDS: MESALAMINE 400 MG CAP.DRTAB. 1200 MG PO (11:03)
--- NOTE | 2020-01-28 12:27 | PM.DS.1 ---
History of Present Illness History of Present Illness Chief complaint: Lump in lower stomach pain Narrative: Vic is a 64M who presented with a small bowel obstruction secondary to an incarcerated ventral hernia. Developed abdominal pain midline superior to umbilicus over the past 72 hours and becoming increasingly severe for the past 6 hrs. Associated with nausea, no emesis, no bowel movement or flatus. No prior midline incision. WBC [address] demonstrates small bowel within a ventral hernia with associated SBO. Past medical significant for Ulcerative colitis, Obesity, factor 5 Liden. Discharge Providers Provider Date of admission: 01/26/20 02:57 Discharge Date: 01/28/20 Primary care physician: Mart Ramos MD Consults: 01/26/20 03:50 Consult to Respiratory Therapy Evaluate & Treat Comment: Physician Instructions: Evaluate and treat Discharge provider: Robi Weeks MD Summary Hospital Course Discharge Diagnosis: Small-bowel infarction Incarcerated ventral hernia Hospital Course: Patient underwent an exploratory laparotomy small bowel resection of infarcted small bowel within the incarcerated ventral hernia. His postoperative course was unremarkable. The nasogastric tube was kept in place for a day until had return of bowel function and his diet was then subsequently advanced as tolerated. At the time of discharge he is feeling well, he is in no acute distress he is tolerating a regular diet having passing flatus his pain is well controlled. Status at Discharge Cognitive/behavioral status at discharge: oriented Functional status at discharge: independent ambulation Exam Vital Signs (past 8 hours): - 01/28/20 06:00 01/28/20 08:00 Temperature 98.0 F 98.3 F Pulse Rate 79 70 Respiratory Rate 16 16 Blood Pressure 122/69 140/84 Pulse Oximetry 97 97 Oxygen Delivery Method Room Air Oxygen Flow Rate 0 Narrative Exam Narrative: General adult male alert oriented no acute distress Chest nonlabored respiration Abdomen soft incision clean dry intact with hair Extremities warm well perfused Objective Labs Result Diagrams: 01/25/20 23:50 01/25/20 23:50 Discharge Plan Discharge Plan Patient Disposition: Home Discharge orders & Medications Prescriptions: New ibuprofen 200 mg tablet 800 mg PO Q6H PRN (Reason: pain) Qty: 60 RF: 0 oxycodone 5 mg tablet 5 mg PO Q6H PRN (Reason: pain) Qty: 30 RF: 0 docusate sodium [Colace] 100 mg capsule 100 mg PO BID Qty: 30 RF: 0 acetaminophen [Tylenol] 325 mg capsule 650 mg PO QID PRN (Reason: pain) Qty: 60 RF: 0 Continued mesalamine 1.2 gram Tablet,Delayed Release (Dr/Ec) PO DAILY RF: 0 prednisone 10 mg Tablet 15 mg PO DAILY RF: 0 Follow up/Referrals: Mart Ramos MD [Primary Care Provider] - Robi Weeks MD [Physician] - 2 Weeks Diet/Activity/Treatments Diet: Regular Activity: No lifting >20 lbs x 4 weeks. Walking only for exercise for [address] while taking narcotics. Skin/Wound/Dressing Care Report to your healthcare provider any signs of infection, such as:: chills, fever, increased pain and unusual drainage Visit Report/Discharge Packet Instructions: [facility]: Wound Care Discharge Data Primary Care Provider: Mart Ramos Quality VTE Deep Vein Thrombosis/Pulmonary Embolism Present on Admission: Yes
--- NOTE | 2020-01-28 13:53 | PC.NURSE ---
Discharge Pt states pain controlled with non narcotics. up independently in room and hallway. PIV removed prior to d/c. D/c instructions provided to pt. Aware to f/u with MD for f/u apt and also for any additional questions or concerns. Pt took all belongings with him including his wallet and keys. Left with RN escort and drove his own car, has not had narcotics this shift.
--- NOTE | 2020-01-28 15:24 | CM.DPC ---
DCP Discharge Home Per MD, pt is medically stable to d/c home today with no identified barriers to discharge. Per RN, pt seems to be tolerating advancing diet and had some elevated white count but stable for discharge home with family today. Plan: Patient to d/c home via family POV today and no SW needs at this time. JESSICA Leroy
== END 2020-01-28 13:37 | disposition home or self-care (01) | DRG 330 ==
LOC: ED 01-26 01:12 → OR 01-26 02:56 → AC 01-26 08:11
PROVIDERS: Admitting Provider Surgery; Emergency Provider Emergency Medicine; PCP Family Medicine; Visit Provider Surgery
PROC: 0WQF0ZZ Repair Abdominal Wall, Open Approach (ICD-10-PCS; CPT 49000; principal; 2020-01-26 14:30)
DX: K43.7 Other and unspecified ventral hernia with gangrene (principal); D68.2 Hereditary deficiency of other clotting factors; Z68.41 Body mass index [BMI] 40.0-44.9, adult; K51.90 Ulcerative colitis, unspecified, without complications; E66.01 Morbid (severe) obesity due to excess calories; G47.33 Obstructive sleep apnea (adult) (pediatric)
CPT/HCPCS: 36415; 44120; 49561; 74177; 80048; 80053; 83690; 83735; 84100; 85025; 94762; 96361; 96365; 96375; 96376; 99222; 99284; J0131; J0330; J1100; J1170; J1650; J1885; J2250; J2270; J2405; J2543; J2704; J3010; Q9967

== ENCOUNTER → 2020-04-26 09:15 | Outpatient (CLI) | payer OTHER, SELFPAY ==
[2020-01-26 05:22] VITALS: BMI 40.6
[2020-04-28 16:12] LABS: Calprotectin, Stool 3357 ug/g (0-120)
== END ==
PROVIDERS: PCP Family Medicine; Referring Provider Internal Medicine Gastroenterology; Visit Provider Internal Medicine Gastroenterology
DX: K51.90 Ulcerative colitis, unspecified, without complications (principal)
CPT/HCPCS: 83993

== ENCOUNTER → 2020-05-04 07:28 | Outpatient (CLI) | payer OTHER, SELFPAY ==
[2020-01-26 05:22] VITALS: BMI 40.6
[2020-05-04 08:29] LABS: Clostridium Difficile Tox PCR Negative for C. diff
== END ==
PROVIDERS: PCP Family Medicine; Referring Provider Internal Medicine Gastroenterology; Visit Provider Internal Medicine Gastroenterology
DX: K51.90 Ulcerative colitis, unspecified, without complications (principal)
CPT/HCPCS: 87493

== ENCOUNTER → 2020-06-08 15:18 | Outpatient (CLI) | payer OTHER, SELFPAY ==
[2020-01-26 05:22] VITALS: BMI 40.6
[2020-06-08 16:05] LABS: Add Manual Diff / Slide Review NO; Basophils Absolute Auto 100 /uL (0-100); Basophils Percent Auto 0.7 % (0-2); Eosinophils Absolute Auto 0 /uL (0-450); Hemoglobin 10.2 g/dL (13.5-17.5); Lymphocytes Absolute Auto 1000 /uL (1100-4500); Lymphocytes Percent Auto 8.5 % (25-40); Mean Corpuscular HGB Conc 30.1 % (30-36); Mean Corpuscular Hemoglobin 21.4 PG (26-34); Mean Corpuscular Volume 71.2 fL (80-100); Monocytes Absolute Auto 600 /uL (0-900); Monocytes Percent Auto 5.4 % (3-14); Neutrophils Absolute Auto 10300 /uL (1500-7000); Neutrophils Percent Auto 85.4 % (50-75); Platelet Count 446 X10^3/uL (150-400); Red Blood Cell Count 4.78 X10^6/uL (4.5-5.9); Red Cell Distribution Width 19.6 % (11.6-14.8)
[2020-06-08 16:40] LABS: Alanine Aminotransferase 24 IU/L (<50); Albumin Globulin Ratio 1.3 (1.0-2.8); Alkaline Phosphatase 89 U/L (38-126); Aspartate Aminotransferase 16 IU/L (17-59); BUN Creatinine Ratio 31.3 (6-22); Bilirubin Total 0.6 mg/dL (0.2-1.3); Blood Urea Nitrogen 25 mg/dL (9-20); Calcium 9.5 mg/dL (8.4-10.2); Carbon Dioxide 21 mmol/L (22-32); Chloride 103 mmol/L (98-107); Estimated Glomerular Filt Rate > 60.0 mL/min (>60); Globulin 3.2 g/dL (1.7-4.1); Glucose 376 mg/dL (80-110); HEMOLYSIS < 15 (0-50); Sodium 135 mmol/L (137-145); Total Protein 7.2 g/dL (6.3-8.2)
[2020-06-08 16:43] LABS: Potassium 5.6 mmol/L (3.4-5.1)
== END ==
PROVIDERS: PCP Family Medicine; Referring Provider Internal Medicine Gastroenterology; Visit Provider Internal Medicine Gastroenterology
DX: R19.7 Diarrhea, unspecified (principal); K51.90 Ulcerative colitis, unspecified, without complications
CPT/HCPCS: 36415; 80053; 85025

== ENCOUNTER 2021-04-20 19:00 | Emergency (ER) | payer OTHER, SELFPAY ==
[2020-01-26 05:22] VITALS: BMI 40.6
--- NOTE | 2021-04-20 19:10 | DI.RAD.S_ITS ---
PROCEDURE: XR CHEST 1V INDICATIONS: Possible stroke TECHNIQUE: One view of the chest was acquired. COMPARISON: [facility], , XR CHEST 1V, 12/27/2019, 21:32. FINDINGS: Surgical changes and devices: None. Lungs and pleura: Opacity at the lung bases appears similar to the prior CXR. No pleural effusions or pneumothorax. Mediastinum: Mediastinal contours appear normal. Heart size is normal. Bones and chest wall: No suspicious bony lesions. Overlying soft tissues appear unremarkable. IMPRESSION: Opacity at the lung bases appears similar prior CXR from 2019. This could represent atelectasis or scarring. Dictated by: Deshaun Lynen M.D. on 04/20/2021 at 20:03 Approved by: Deshaun Lynne M.D. on 04/20/2021 at 20:06
[2021-04-20 19:11] VITALS: BP 163/88; PULSE 110; RESP 18; TEMP 37; O2SAT 96; BMI 38.3
--- NOTE | 2021-04-20 19:11 | DI.CT.S_ITS ---
PROCEDURE: CT HEAD/BRAIN WO CON INDICATIONS: visual changes and vertigo TECHNIQUE: Noncontrast 4.5 mm thick angled axial sections acquired from the foramen magnum to the vertex, with coronal and sagittal reformats. For radiation dose reduction, the following was used: automated exposure control, adjustment of mA and/or kV according to patient size. COMPARISON: None. FINDINGS: Image quality: Excellent. CSF spaces: Basal cisterns are patent. No extra-axial fluid collections. Ventricles are normal in size and shape. Brain: No midline shift. No intracranial masses or hemorrhage. Basal ganglia calcifications. Bassett-white matter interface is normal. Skull and face: Calvarium and visualized facial bones are intact, without suspicious lesions. Sinuses: Visualized sinuses and mastoids are clear. IMPRESSION: No acute intracranial abnormality. Comment: Findings were discussed with Candis Rodriguez at 7:51 p.m. Dictated by: Deshaun Lynne M.D. on 04/20/2021 at 19:48 Approved by: Deshaun Lynne M.D. on 04/20/2021 at 19:52
--- NOTE | 2021-04-20 19:20 | ED.NEUROSD ---
HPI - Neuro Symptoms/Deficit General Chief Complaint: Neuro Symptoms/Deficit Stated Complaint: visual changes, vertigo Time Seen by Provider: 04/20/21 19:10 Source: patient Mode of arrival: Ambulatory Limitations: no limitations History of Present Illness HPI Narrative: Patient is a 65-year-old male with history of factor 5 Leiden and ulcerative colitis presenting with vertigo and bilateral visual changes ongoing for the last 1 week. He states he had episode like this 28 years ago has migraine and visual changes related to sleep apnea. He got that under control he has not had any issues until 1 week ago. He noticed by a lateral right lower quadrants in both eyes loss of vision then he had intense vertigo and headache for 3 days. He said he was able to ambulate but it was very difficult. He says symptoms started to improve including his vision and he was doing better until about 5:00 p.m. this afternoon when his vision got worse again. It is in the exact same place where he loses right lower quadrant vision he says he does not feel dizzy yet or have headache but this is continued on a 1 week. He has no numbness tingling or weakness no chest pain or palpitations. His vertigo and dizziness was definitely worse with position and P remained still it was tolerable. He had difficulty ambulating because he says a Librium was not right. That has improved today. Onset (ago): week(s) (1) On Anticoagulants: No Related Data Home Medications Medication Instructions Recorded Confirmed mesalamine 1.2 gram tablet,delayed 4.8 g PO DAILY tab 02/16/21 02/16/21 release prednisone 10 mg tablet 10 mg PO DAILY tab 02/16/21 02/16/21 vedolizumab 300 mg intravenous 300 mg IV Q8W 02/16/21 02/16/21 solution Previous Rx's Medication Instructions Recorded acetaminophen [Tylenol] 650 mg PO QID PRN #60 cap 01/28/20 ibuprofen 800 mg PO Q6H PRN #60 tab 01/28/20 meclizine 25 mg PO TID PRN #10 tab 04/20/21 Allergies Allergy/AdvReac Type Severity Reaction Status Date / Time No Known Allergies Allergy Verified 02/16/21 10:32 Review of Systems Review of Systems ROS Unobtainable: All systems reviewed & are unremarkable except as noted in HPI and below Constitutional Constitutional: Denies chills, Denies fever(s), Denies lethargy and Denies weakness Eyes Eyes: Reports as per HPI and Reports blind spots ENT Ears, Nose, Mouth, and Throat: Denies change in voice, Reports vertigo, Reports dizziness, Denies neck pain and Denies sore throat Cardiovascular Cardiovascular: Denies chest pain, Denies irregular heart rhythm, Denies lightheadedness, Denies palpitations, Denies dyspnea, Denies dyspnea on exertion and Denies orthopnea Respiratory Respiratory: Denies cough, Denies dyspnea, Denies dyspnea on exertion and Denies wheezing Gastrointestinal Gastrointestinal: Denies abdominal pain, Denies change in bowel habits, Denies diarrhea, Denies nausea and Denies vomiting Musculoskeletal Musculoskeletal: Denies neck pain Integumentary/Breasts Skin/Breast: Denies pruritus, Denies erythema, Denies rash and Denies wounds Neurologic Neurologic: Reports as per HPI, Reports vertigo, Reports dizziness and Denies weakness Endocrine Endocrine: Denies palpitations Hematologic/Lymphatic On Anticoagulants: No Allergic/Immunologic Allergic/Immunologic: Denies wheezing Patient History Medical History (Updated 04/20/21 @ 21:11 by Candis Rodriguez DO) Factor V Leiden Ulcerative colitis Family History Family/Other Obesity Alcohol abuse Father Heart disease Alcohol abuse Mother Alcohol abuse Family/Other Alcohol abuse Substance abuse Family/Other Substance abuse Social History household members: none Smoking Status: Current some day smoker alcohol intake: never Smoking Status: Current some day smoker tobacco type: vaping alcohol intake frequency: 0-2 drinks per day Substance Use Type: does not use Exam Initial Vital Signs Initial Vital Signs: Vital Signs Temperature 98.6 F 04/20/21 19:11 Pulse Rate 110 H 04/20/21 19:11 Respiratory Rate 18 04/20/21 19:11 Blood Pressure 163/88 H 04/20/21 19:11 Pulse Oximetry 96 04/20/21 19:11 GENERAL: Alert pleasant 65-year-old male HEENT: Head atraumatic,EOMI, pupils reactive, no nystagmus, decreased vision and his bilateral eyes and right lower quadrants although patient states that is improving face symmetric, moist mucous membranes CARDIOVASCULAR: Regular rate and rhythm without murmurs, rubs or gallops. RESPIRATORY: Breath sounds equal bilaterally, no wheezes rales or rhonchi. ABDOMEN: Soft, nontender. Normoactive bowel sounds all 4 quadrants. No guarding or rebound. EXTREMITIES: Normal range of motion, no clubbing or edema. Neurovascularly intact NEUROLOGICAL: Alert and oriented x4.Normal gait and speech. Cranial nerves II through XII grossly intact. Good qsxpak-uj-qcen, good cgvs-su-bxhg, strength equal bilaterally, no dysarthria or aphasia, sensation in tact to soft touch bilaterally, no visual changes, no facial droop SKIN: Warm, dry, no laceration, no petechiae, no rashes or lesions. Scores NIH Stroke Scale Level of Conciousness: Alert, keenly responsive Ask month/age: Answers both questions correctly. Open/close eyes, close hand: Performs both tasks correctly Best gaze horizontal: Normal Visual chi: Partial hemianopia (Bilateral right lower quadrant feel) Facial palsy: Normal symetrical movement Left arm drift: No drift for full 10 sec Right arm drift: No drift for full 10 sec Left leg drift: No drift for full 5 sec Right leg drift: No drift for full 5 sec Limb ataxia: Absent Sensory on face/arms/legs: Normal, no sensory loss Best language: No aphasia, normal Dysarthria: Normal Extinction or inattention: No abnormality Total NIH Stroke scale score: 1 Course Orders Ordered: ED Orders 04/20/21 19:10 XR chest 1V Stat Complete Blood Count AUTO DIFF Stat Comprehensive Metabolic Panel Stat Troponin & CK Cardiac Panel Stat EKG-12 Lead Stat 04/20/21 19:11 CT head/brain wo con Stat 04/20/21 19:20 CT angio head and neck Stat 04/20/21 20:59 Urine Drug Screen, Rapid Stat Vital Signs Vital signs: Vital Signs - 8 hr 04/20/21 20:59 04/20/21 21:00 04/20/21 21:02 Pulse Rate 87 91 H 91 H Respiratory Rate 20 17 20 Blood Pressure 167/87 H Pulse Oximetry 96 96 96 MDM - Neuro Symptoms/Deficit Lab Data Attestation: I reviewed the patient's lab results. Result diagrams: 04/20/21 19:10 04/20/21 19:10 Labs: Lab Results 06/16/21 06/16/21 06/16/21 Range/Units 19:10 19:10 20:59 WBC 10.4 (4.5-11.0) X10^3/uL RBC 5.59 (4.5-5.9) X10^6/uL Hgb 16.1 (13.5-17.5) g/dL Hct 48.2 (41-53) % MCV 86.3 (80-100) fL MCH 28.7 (26-34) PG MCHC 33.3 (30-36) % RDW 14.0 (11.6-14.8) % Plt Count 292 (150-400) X10^3/uL Neut % (Auto) 65.7 (50-75) % Lymph % (Auto) 22.3 L (25-40) % [place] % (Auto) 9.4 (3-14) % Eos % (Auto) 1.7 L (2-4) % Baso % (Auto) 0.9 (0-2) % Neut # (Auto) 6800 (9943-3597) /uL Lymph # (Auto) 2300 (8162-4532) /uL [place] # (Auto) 1000 H (0-900) /uL Eos # (Auto) 200 (0-450) /uL Baso # (Auto) 100 (0-100) /uL Sodium 136 L (137-145) mmol/L Potassium 3.7 (3.4-5.1) mmol/L Chloride 99 (98-107) mmol/L Carbon Dioxide 28 (22-32) mmol/L BUN 14 (9-20) mg/dL Creatinine 0.94 (0.66-1.25) mg/dL Estimated GFR > 60.0 (>60) mL/min BUN/Creatinine Ratio 14.9 (6-22) Glucose 307 H (80-110) mg/dL Calcium 9.6 (8.4-10.2) mg/dL Total Bilirubin 0.6 (0.2-1.3) mg/dL AST 23 (17-59) IU/L ALT 23 (<50) IU/L Alkaline Phosphatase 72 (38-126) U/L Total Creatine Kinase 37 L (55-170) U/L CK-MB (CK-2) TNP CK-MB (CK-2) Rel Index TNP Troponin I < 0.012 (0.01-0.034) ng/mL Total Protein 8.3 H (6.3-8.2) g/dL Albumin 4.3 (3.5-5.0) g/dL Globulin 4.0 (1.7-4.1) g/dL Albumin/Globulin Ratio 1.1 (1.0-2.8) U Opiates 300ng/mL cut Negative (Negative) Ur Oxycodone Screen Negative (Negative) Urine Methadone Screen Negative (Negative) Ur Barbiturates Screen Negative (Negative) U Tricyclic Antidepress Negative (Negative) Ur Phencyclidine Scrn Negative (Negative) Ur Amphetamines Screen Negative (Negative) U Methamphetamines Scrn Negative (Negative) Ur MDMA Scrn (Ecstasy) Negative (Negative) U Benzodiazepines Scrn Negative (Negative) Urine Cocaine Screen Negative (Negative) U Marijuana (THC) Screen Negative (Negative) Point of Care Testing Glucose POC 278 Urine Dip Bedside Urine Glucose 1000 mg/dl Bedside Urine Bilirubin - Negative Bedside Urine Ketone - Negative Urine Specific [place] 1.015 Bedside Urine Occult Blood - Negative Bedside Urine pH 6.0 Bedside Urine Protein - Negative Bedside Urine Urobilinogen - Negative Bedside Urine Nitrite - Negative Bedside Urine Leukocytes - Negative Esterase Imaging Data CT scan - head: Radiologist's Impression: PROCEDURE: CT HEAD/BRAIN WO CON INDICATIONS: visual changes and vertigo TECHNIQUE: Noncontrast 4.5 mm thick angled axial sections acquired from the foramen magnum to the vertex, with coronal and sagittal reformats. For radiation dose reduction, the following was used: automated exposure control, adjustment of mA and/or kV according to patient size. COMPARISON: None. FINDINGS: Image quality: Excellent. CSF spaces: Basal cisterns are patent. No extra-axial fluid collections. Ventricles are normal in size and shape. Brain: No midline shift. No intracranial masses or hemorrhage. Basal ganglia calcifications. Bassett-white matter interface is normal. Skull and face: Calvarium and visualized facial bones are intact, without suspicious lesions. Sinuses: Visualized sinuses and mastoids are clear. IMPRESSION: No acute intracranial abnormality. Comment: Findings were discussed with Candis Rodriguez at 7:51 p.m. Dictated by: Deshaun Lynne M.D. on 04/20/2021 at 19:48 CTA - brain/neck: Radiologist's Impression: PROCEDURE: CT ANGIO HEAD AND NECK INDICATIONS: vision changes bilateral and dizzy TECHNIQUE: After the administration of intravenous contrast, 1 mm thick sections acquired from the aortic arch through the [place]. Post-contrast 4.5 mm thick sections then re-acquired from the foramen magnum to the vertex. 3-dimensional pycuzlx-ncmealvfe-vtcghpyhve (MIP) and/or volume rendering reformats were acquired of the central intracranial vasculature and neck separately. COMPARISON: [facility], CT, CT HEAD/BRAIN WO CON, 04/20/2021, 19:37. FINDINGS: Image quality: Excellent. BRAIN: CSF spaces: Ventricles are normal in size and shape. Basal cisterns are patent. No extra-axial fluid collections. Brain: Basal ganglia calcifications. No midline shift. No intracranial bleeds or masses. Bassett-white matter interface appears intact. Skull and face: Calvarium and facial bones appear intact, without suspicious lesions. Orbits appear normal. Sinuses: Sinuses and mastoids are clear. HEAD CT ANGIOGRAPHY: Anterior circulation: Intracranial internal carotid arteries are normal in size and flow. The flow within the paired anterior cerebral arteries is normal and symmetric. The flow within the middle cerebral arteries is normal and symmetric. The anterior communicating artery is seen. No aneurysms are seen. Posterior circulation: Visualized portions of the vertebral arteries demonstrate normal caliber, and join to form a normal appearing basilar artery. Flow within the posterior cerebral arteries is normal and symmetric. No aneurysms are seen. NECK CT ANGIOGRAPHY: Carotid system: The great vessels demonstrate a conventional anatomy as they arise from the aortic arch. The origins of the common carotid arteries appear patent. The common carotid arteries demonstrate normal caliber and courses. The bifurcation regions are both widely patent. The internal carotid arteries demonstrate less than 50 % stenosis. Moderate calcified plaque at the carotid bulbs bilaterally. Posterior circulation: The origins of the vertebral arteries both appear widely patent. The more superior extracranial portions of both vertebral arteries also demonstrate normal courses and calibers. They join to form a normal appearing basilar artery. Soft tissues: Visualized neck soft tissues demonstrate no suspicious abnormalities. A small right thyroid calcification. Bones: No suspicious bony lesions. C3 bone island. Moderate degenerative change in the cervical spine. Visualized cervical spine appears normally aligned. IMPRESSION: 1. No large vessel occlusion. 2. Approximately 50 % stenosis in the bilateral ICA. Moderate calcified plaque at the carotid bulbs. Any quantitative measurements of stenosis were performed using NASCET criteria. Dictated by: Deshaun Lynne M.D. on 04/20/2021 at 20:06 Approved by: Deshaun Lynne M.D. on 04/20/2021 at 20:15 ECG Data Attestation: I personally reviewed and interpreted this ECG as follows: Interpretation: Normal sinus rhythm rate 101 p.r. interval 150 QRS 1-84 QTC 479 no changes or T-wave inversions MDM Narrative Medical decision making narrative: Patient has bilateral visual changes in vertigo like symptoms ongoing for about 1 week. Visual changes are not consistent with stroke CT head and angio are negative. Although CT angio does show 50% bilateral internal carotid blockage however this is unlikely causing patient's symptoms today. Patient is dizzy numbness feeling [place] is consistent with vertigo which is significantly worse with movement and better with lying still. He actually overall has had much improvement over the last 1 week dizziness. He was even able to drive himself here with out difficulty and ambulatory in the emergency department as well with how any issue. He states that while in the emergency department his visual changes are actually improving. Patient has a no other neuro deficits to suggest stroke. He certainly is not a tPA candidate because symptoms have been ongoing for a week. I do recommend that if symptoms continue he may need an outpatient MRI. At this time patient is is reassured and feels better about going home Discharge Plan Departure Patient Disposition: Home Clinical Impression: Vertigo Instructions: DI for Vertigo Activity Restrictions/Additional Instructions: *You have been diagnosed with vertigo *What to do: At this time her symptoms are most consistent with vertigo. This should start to improve. You were found to have a 50% stenosis in the arteries in your neck at this time this just needs to be monitored with a primary care provider as it is unlikely causing your symptoms *Continue to take medications as directed Meclizine 25 mg every 8 hours if needed for dizziness *Follow up with your primary care provider in 2-3 days *Return to ER if you should have a weakness numbness tingling persistent dizziness inability to walk speech difficulty or any new, worsening or concerning symptoms Prescriptions: New meclizine 25 mg tablet 25 mg PO TID PRN (Reason: dizziness) Qty: 10 RF: 0 No Action ibuprofen 200 mg tablet 800 mg PO Q6H PRN (Reason: pain) Qty: 60 RF: 0 acetaminophen [Tylenol] 325 mg capsule 650 mg PO QID PRN (Reason: pain) Qty: 60 RF: 0 mesalamine 1.2 gram tablet,delayed release (DR/EC) 4.8 g PO DAILY RF: 0 prednisone 10 mg tablet 10 mg PO DAILY RF: 0 Entyvio 300 mg recon soln 300 mg IV Q8W RF: 0 Referrals: [facility] [Outside] Mart Ramos MD [Primary Care Provider] -
[2021-04-20 19:34] LABS: Add Manual Diff / Slide Review NO; Basophils Absolute Auto 100 /uL (0-100); Basophils Percent Auto 0.9 % (0-2); Eosinophils Absolute Auto 200 /uL (0-450); Eosinophils Percent Auto 1.7 % (2-4); Hematocrit 48.2 % (41-53); Hemoglobin 16.1 g/dL (13.5-17.5); Lymphocytes Absolute Auto 2300 /uL (1100-4500); Lymphocytes Percent Auto 22.3 % (25-40); Mean Corpuscular HGB Conc 33.3 % (30-36); Mean Corpuscular Hemoglobin 28.7 PG (26-34); Mean Corpuscular Volume 86.3 fL (80-100); Monocytes Absolute Auto 1000 /uL (0-900); Monocytes Percent Auto 9.4 % (3-14); Neutrophils Absolute Auto 6800 /uL (1500-7000); Neutrophils Percent Auto 65.7 % (50-75); Platelet Count 292 X10^3/uL (150-400); Red Blood Cell Count 5.59 X10^6/uL (4.5-5.9); White Blood Cell Count 10.4 X10^3/uL (4.5-11.0)
[2021-04-20 19:52] LABS: Alanine Aminotransferase 23 IU/L (<50); Albumin 4.3 g/dL (3.5-5.0); Albumin Globulin Ratio 1.1 (1.0-2.8); Alkaline Phosphatase 72 U/L (38-126); Aspartate Aminotransferase 23 IU/L (17-59); BUN Creatinine Ratio 14.9 (6-22); Bilirubin Total 0.6 mg/dL (0.2-1.3); Blood Urea Nitrogen 14 mg/dL (9-20); Calcium 9.6 mg/dL (8.4-10.2); Carbon Dioxide 28 mmol/L (22-32); Chloride 99 mmol/L (98-107); Creatine Kinase 37 U/L (55-170); Estimated Glomerular Filt Rate > 60.0 mL/min (>60); Glucose 307 mg/dL (80-110); HEMOLYSIS < 15 (0-50); Potassium 3.7 mmol/L (3.4-5.1); Sodium 136 mmol/L (137-145); Total Protein 8.3 g/dL (6.3-8.2)
[2021-04-20 20:03] LABS: Troponin I < 0.012 ng/mL (0.01-0.034)
[2021-04-20 20:59] VITALS: PULSE 87; RESP 20; O2SAT 96
[2021-04-20 21:00] VITALS: PULSE 91; RESP 17; O2SAT 96
[2021-04-20 21:02] VITALS: BP 167/87; PULSE 91; RESP 20; O2SAT 96
[2021-04-20 21:11] LABS: UR Morphine/Opiate cutoff 300 Negative (Negative); Ur Creatinine Normal (Normal); Ur Specific Gravity Normal (Normal); Urine Amphetamines Negative (Negative); Urine Barbiturates Negative (Negative); Urine Benzodiazepines Negative (Negative); Urine Cocaine Negative (Negative); Urine MDMA Negative (Negative); Urine Methadone Negative (Negative); Urine Methamphetamines Negative (Negative); Urine Oxycodone Negative (Negative); Urine Phencyclidine Negative (Negative); Urine Tetrahydrocannabinol Negative (Negative); Urine Tricyclic Antidepressant Negative (Negative); Urine pH Normal (Normal)
== END 2021-04-20 21:40 | disposition home or self-care (01) ==
PROVIDERS: Emergency Provider Emergency Medicine; PCP Family Medicine
DX: R42 Dizziness and giddiness (principal); H53.9 Unspecified visual disturbance
CPT/HCPCS: 36415; 70450; 70496; 70498; 71045; 80053; 80305; 81003; 82550; 82962; 84484; 85025; 93005; 93010; 99284; Q9967

== ENCOUNTER → 2021-07-29 08:28 | Outpatient (CLI) | payer OTHER, SELFPAY ==
[2020-01-26 05:22] VITALS: BMI 40.6
[2021-07-29 10:50] LABS: Hemoglobin 14.8 g/dL (13.5-17.5)
[2021-07-29 11:04] LABS: Hemoglobin A1C% w Est Avg Glu 10.5 % (4.0-6.0)
== END ==
PROVIDERS: PCP Physician Assistant Medical; Referring Provider Internal Medicine Gastroenterology; Visit Provider Internal Medicine Gastroenterology
DX: K51.90 Ulcerative colitis, unspecified, without complications (principal)
CPT/HCPCS: 36415; 83036; 85018

== ENCOUNTER → 2021-11-04 12:43 | Outpatient (CLI) | payer OTHER, SELFPAY ==
[2021-10-14 08:44] VITALS: BMI 40.6
[2021-11-04 13:24] LABS: Hemoglobin A1C% w Est Avg Glu 6.5 % (4.0-6.0)
[2021-11-04 13:30] LABS: BUN Creatinine Ratio 20.8 (6-22); Blood Urea Nitrogen 16 mg/dL (9-20); Calcium 9.5 mg/dL (8.4-10.2); Carbon Dioxide 25 mmol/L (22-32); Chloride 108 mmol/L (98-107); Estimated Glomerular Filt Rate > 60.0 mL/min (>60); Glucose 99 mg/dL (80-110); HEMOLYSIS < 15 (0-50); Potassium 4.4 mmol/L (3.4-5.1); Sodium 141 mmol/L (137-145)
== END ==
PROVIDERS: PCP Physician Assistant Medical; Referring Provider Physician Assistant Medical; Visit Provider Physician Assistant Medical
DX: E11.9 Type 2 diabetes mellitus without complications (principal)
CPT/HCPCS: 36415; 80048; 83036

== ENCOUNTER → 2022-01-13 10:42 | Outpatient (CLI) | payer OTHER, SELFPAY ==
[2021-10-14 08:44] VITALS: BMI 40.6
[2022-01-13 12:20] LABS: Alanine Aminotransferase 23 IU/L (<50); Albumin 4.3 g/dL (3.5-5.0); Albumin Globulin Ratio 1.2 (1.0-2.8); Alkaline Phosphatase 65 U/L (38-126); Aspartate Aminotransferase 24 IU/L (17-59); BUN Creatinine Ratio 18.2 (6-22); Bilirubin Total 0.5 mg/dL (0.2-1.3); Blood Urea Nitrogen 12 mg/dL (9-20); Calcium 9.4 mg/dL (8.4-10.2); Carbon Dioxide 28 mmol/L (22-32); Chloride 106 mmol/L (98-107); Estimated Glomerular Filt Rate > 60.0 mL/min (>60); Globulin 3.7 g/dL (1.7-4.1); Glucose 97 mg/dL (80-110); HDL Cholesterol 41 mg/dL (40-60); HEMOLYSIS < 15 (0-50); Potassium 4.3 mmol/L (3.4-5.1); Sodium 139 mmol/L (137-145); Triglycerides 95 mg/dL (35-150)
[2022-01-13 12:23] LABS: Hemoglobin A1C% w Est Avg Glu 5.2 % (4.0-6.0)
[2022-01-13 12:48] LABS: Add Manual Diff / Slide Review NO; Basophils Absolute Auto 100 /uL (0-100); Basophils Percent Auto 0.7 % (0-2); Eosinophils Absolute Auto 200 /uL (0-450); Eosinophils Percent Auto 2.9 % (2-4); Hematocrit 39.5 % (41-53); Lymphocytes Absolute Auto 1100 /uL (1100-4500); Lymphocytes Percent Auto 14.1 % (25-40); Mean Corpuscular HGB Conc 32.9 % (30-36); Mean Corpuscular Hemoglobin 28.7 PG (26-34); Mean Corpuscular Volume 87.1 fL (80-100); Monocytes Absolute Auto 700 /uL (0-900); Monocytes Percent Auto 9.5 % (3-14); Neutrophils Absolute Auto 5600 /uL (1500-7000); Neutrophils Percent Auto 72.8 % (50-75); Platelet Count 244 X10^3/uL (150-400); Red Blood Cell Count 4.53 X10^6/uL (4.5-5.9); Red Cell Distribution Width 15.8 % (11.6-14.8); TSH w/ Reflex to FT4 1.73 uIU/mL (0.47-4.68); White Blood Cell Count 7.6 X10^3/uL (4.5-11.0)
[2022-01-13 17:04] LABS: Creatinine Urine Random 76.2 mg/dL
[2022-01-13 17:09] LABS: Microalbumin Urine Random < 0.6 mg/dL (0-1.6)
[2022-01-13 17:56] LABS: Cholesterol 193 mg/dL (140-199); LDL Cholesterol Calculated 133 mg/dL (<100)
== END ==
PROVIDERS: PCP Family Medicine; Referring Provider Family Medicine; Visit Provider Family Medicine
DX: G47.33 Obstructive sleep apnea (adult) (pediatric) (principal); D68.51 Activated protein C resistance; K51.919 Ulcerative colitis, unspecified with unspecified complications; R73.9 Hyperglycemia, unspecified
CPT/HCPCS: 36415; 80053; 80061; 82043; 82570; 83036; 84443; 85025

== ENCOUNTER → 2022-04-19 06:58 | Outpatient (CLI) | payer OTHER, SELFPAY ==
[2021-10-14 08:44] VITALS: BMI 40.6
[2022-04-19 07:51] LABS: Add Manual Diff / Slide Review NO; Basophils Absolute Auto 0 /uL (0-100); Basophils Percent Auto 0.5 % (0-2); Eosinophils Absolute Auto 100 /uL (0-450); Eosinophils Percent Auto 1.4 % (2-4); Hematocrit 40.7 % (41-53); Hemoglobin 13.5 g/dL (13.5-17.5); Lymphocytes Absolute Auto 1000 /uL (1100-4500); Lymphocytes Percent Auto 12.6 % (25-40); Mean Corpuscular HGB Conc 33.1 % (30-36); Mean Corpuscular Hemoglobin 28.5 PG (26-34); Mean Corpuscular Volume 86.2 fL (80-100); Monocytes Absolute Auto 700 /uL (0-900); Monocytes Percent Auto 8.6 % (3-14); Neutrophils Absolute Auto 6300 /uL (1500-7000); Neutrophils Percent Auto 76.9 % (50-75); Platelet Count 226 X10^3/uL (150-400); Red Blood Cell Count 4.72 X10^6/uL (4.5-5.9); Red Cell Distribution Width 15.3 % (11.6-14.8); White Blood Cell Count 8.2 X10^3/uL (4.5-11.0)
[2022-04-19 07:59] LABS: Hemoglobin A1C% w Est Avg Glu 4.9 % (4.0-6.0)
[2022-04-19 08:31] LABS: Alanine Aminotransferase 18 IU/L (<50); Albumin Globulin Ratio 1.3 (1.0-2.8); Alkaline Phosphatase 66 U/L (38-126); Aspartate Aminotransferase 22 IU/L (17-59); Bilirubin Total 0.6 mg/dL (0.2-1.3); Blood Urea Nitrogen 20 mg/dL (9-20); Calcium 9.1 mg/dL (8.4-10.2); Carbon Dioxide 28 mmol/L (22-32); Chloride 104 mmol/L (98-107); Cholesterol 173 mg/dL (140-199); Estimated Glomerular Filt Rate > 60 mL/min (>60); Globulin 3.2 g/dL (1.7-4.1); Glucose 91 mg/dL (80-110); HDL Cholesterol 44 mg/dL (40-60); HEMOLYSIS < 15 (0-50); LDL Cholesterol Calculated 111 mg/dL (<100); Potassium 4.8 mmol/L (3.4-5.1); Sodium 138 mmol/L (137-145); Total Protein 7.2 g/dL (6.3-8.2); Triglycerides 91 mg/dL (35-150)
[2022-04-23 15:53] LABS: Prostate Specific Antigen 1.59 ng/mL (0.10-4.00)
== END ==
PROVIDERS: PCP Family Medicine; Referring Provider Family Medicine; Visit Provider Family Medicine
DX: D68.51 Activated protein C resistance (principal); E11.9 Type 2 diabetes mellitus without complications; K51.919 Ulcerative colitis, unspecified with unspecified complications; K80.20 Calculus of gallbladder without cholecystitis without obstruction
CPT/HCPCS: 36415; 80053; 80061; 83036; 84153; 85025

== ENCOUNTER → 2022-07-22 10:33 | Outpatient (CLI) | payer OTHER, SELFPAY ==
[2021-10-14 08:44] VITALS: BMI 40.6
== END ==
PROVIDERS: PCP Family Medicine; Referring Provider Family Medicine; Visit Provider Family Medicine
DX: D68.51 Activated protein C resistance (principal); E11.9 Type 2 diabetes mellitus without complications; K51.919 Ulcerative colitis, unspecified with unspecified complications
CPT/HCPCS: 36415; 83036

== ENCOUNTER 2022-08-23 08:05 | Day surgery (SDC) | payer OTHER, SELFPAY ==
[2021-10-14 08:44] VITALS: BMI 40.6
--- NOTE | 2022-08-23 | PATH_ITS ---
[facility] Accession Number: [id number] No. of containers..03 Tissue . 01 Material submitted: . PART A: colon - RIGHT COLON BIOPSY PART B: colon - TRANSVERSE COLON BIOPSY PART C: colon - LEFT COLON BIOPSY . 01 Diagnosis: A-C: Right, Transverse, Left Colon, Biopsies: Colonic mucosa with no significant diagnostic abnormality. Negative for active inflammation, granulomas, dysplasia, and malignancy. . MRV 08/25/2022 1848 Local . 01 Electronically signed: . Miko Grider MD, PhD, Pathologist NPI- [id number] . 01 Gross description: . Part A: RIGHT COLON BIOPSY: Received in formalin are multiple fragment(s) of tee, soft tissue measuring 1.0 x 0.5 x 0.1 cm in aggregate submitted entirely in 1 cassette(s) Part B: TRANSVERSE COLON BIOPSY: Received in formalin are multiple fragment(s) of tee, soft tissue measuring 1.0 x 0.5 x 0.1 cm in aggregate submitted entirely in 1 cassette(s) Part C: LEFT COLON BIOPSY: Received in formalin are multiple fragment(s) of tee, soft tissue measuring 1.3 x 0.6 x 0.1 cm in aggregate submitted entirely in 1 cassette(s) /CPE 08/24/2022 0734 Local . 01 Pathologist provided ICD-10: K51.90 . 01 CPT . 163342, 321613, 208332 Specimen Comment: A courtesy copy of this report has been sent to [phone] Performed at: 01 [facility] [address] [place] [address] [address] [facility], [place], [place] [id number] MD Juan Moe MD Phone: [phone]
[2022-08-23 08:37] VITALS: BP 125/94; PULSE 105; RESP 16; TEMP 37; O2SAT 98; BMI 28.6
[2022-08-23 08:55] LABS: COVID19 -Nasal RAPID Negative (Negative)
--- NOTE | 2022-08-23 09:01 | P.HP_ITS ---
History of Present Illness History of Present Illness Date Patient Seen: 08/23/22 Chief complaint: [facility] [place] Patient History Medical History (Updated 01/16/22 @ 19:53 by Deana Sahu) Chicken pox (~1984) Diabetes mellitus (~2020) Factor V Leiden (~2009) Obstructive sleep apnea syndrome (~1987) Skin cancer (~2012) Tinnitus (~2011) Ulcerative colitis (~2011) Wears glasses Surgical History (Updated 01/16/22 @ 19:53 by Deana Sahu) Anesthesia History of surgery History of tonsillectomy History of tracheostomy (~1958) History of ventral hernia repair (~01/26/20) Family & Social History Family History (Updated 01/16/22 @ 19:59 by Deana Sahu) Father Heart disease Alcohol abuse Cancer Mother Alcohol abuse Brother Asphyxia Brother Diabetes mellitus Hypertension Mental health problem Alcohol abuse Sister Alcohol abuse Grandfather No problems noted. Grandmother Morbid obesity Grandfather Cancer Heart disease Social History: household members none Tobacco & Substance use: Tobacco type e-cigarettes Smoking Status Current some day smoker alcohol intake never alcohol intake frequency 0-2 drinks per day Substance Use Type does not use Meds Home Medications and Allergies Home Medications Medication Instructions Recorded Confirmed Type acetaminophen 325 mg capsule 650 mg PO QID PRN pain #60 caps 01/28/20 07/28/22 Rx (Tylenol) ibuprofen 200 mg tablet 800 mg PO Q6H PRN pain #60 tabs 01/28/20 07/28/22 Rx mesalamine 1.2 gram tablet,delayed 4.8 g PO DAILY 02/16/21 07/28/22 History release vedolizumab 300 mg intravenous 300 mg IV Q8W 02/16/21 07/28/22 History solution (Entyvio) meclizine 25 mg tablet 25 mg PO TID PRN dizziness #10 tabs 04/20/21 07/28/22 Rx acetylcarnitine HCl 250 mg capsule 250 mg PO DAILY 01/13/22 07/28/22 History alpha lipoic acid 600 mg capsule 600 mg PO DAILY 01/13/22 07/28/22 History cholecalciferol (vitamin D3) 10 10 mcg PO DAILY 01/13/22 07/28/22 History mcg (400 unit) capsule ferrous sulfate 325 mg (65 mg 325 mg PO DAILY 01/13/22 07/28/22 History iron) tablet (Iron (ferrous sulfate)) folic acid 1 mg tablet 1,000 mcg PO DAILY 01/13/22 07/28/22 History gabapentin 600 mg tablet See Rx Instructions PO TID #240 01/13/22 07/28/22 Rx tabs magnesium 250 mg tablet 250 mg PO DAILY 01/13/22 07/28/22 History mecobalamin (vitamin B12) 1,000 1,000 mcg PO BID 01/13/22 07/28/22 History mcg chewable tablet (B12 Active) omega 4-qse-cpj-fish oil 100 cap PO 01/13/22 07/28/22 History mg-160 mg-1,000 mg capsule (Fish Oil) potassium gluconate 2.5 mEq tablet 2.5 meq PO DAILY 01/13/22 07/28/22 History sildenafil 100 mg tablet (Viagra) 100 mg PO DAILY PRN sexual 01/13/22 07/28/22 Rx activity #12 tabs vitamin B complex-folic acid ER tab PO 01/13/22 07/28/22 History 400 mcg tablet,extended release metformin 500 mg tablet 500 mg PO DAILY 04/21/22 07/28/22 History tamsulosin 0.4 mg capsule 0.4 mg PO BEDTIME #90 caps 04/21/22 07/28/22 Rx tadalafil 5 mg tablet (Cialis) 5 mg PO DAILY #90 tabs 07/28/22 07/28/22 Rx Allergies Allergy/AdvReac Type Severity Reaction Status Date / Time No Known Allergies Allergy Verified 08/23/22 08:57 Exam Vital Signs (past 8 hours): - 08/23/22 08:37 Temperature 98.6 F Pulse Rate 105 H Respiratory Rate 16 Blood Pressure 125/94 H Pulse Oximetry 98 Oxygen Delivery Method Room Air Oxygen Delivery Method Room Air Narrative Exam Narrative: Oropharynx free of lesions Chest clear to auscultation percussion Cardiac exam reveals no S3 or murmur Objective Labs Labs: Laboratory Results - last 24 hr 08/23/22 08:35 SARS-CoV-2 (PCR) Negative Assessment & Plan Assessment & Plan narrative: History of ulcerative colitis doing extremely well on Entyvio every 6 weeks with 1-2 bowel movements per day. Need for follow-up colonoscopy with multiple biopsies for surveillance. He is due to have follow-up visit with Dr. Brownlee on Sunday. Time Spent With Patient Critical Care time: I spent a total of [] minutes of critical care time on this patient's care today; this time is exclusive of procedural time.
--- NOTE | 2022-08-23 09:04 | PM.OP.COLON ---
Operative Date/Time/Diagnoses Date of procedure: 08/23/22 Pre-op diagnosis: See indication and findings Procedure & Clinicians Study performed: Colonoscopy with biopsies Indications: History of ulcerative colitis with need for surveillance colonoscopy with biopsies. Surgeon: Armando Morales Procedure Notes Procedure in detail: After informed consent was obtained the patient was placed in left lateral decubitus position. The video colonoscope was introduced the rectum slowly advanced cecum. Preparation was good. On slow withdrawal mucosa was carefully examined. The scope was removed. The patient tolerated procedure well. Blood loss none Complications none Sedation propofol Findings 1. Extensive evidence of old inflammation with pseudopolyps and neovascularization throughout the entire colon. Biopsies were taken to every 10 cm and placed in right, transverse, and left colon biopsy bottles. 2. Otherwise negative colonoscopy to cecum Hector has follow-up with Dr. Brownlee on Sunday. He needs follow-up colonoscopy in 2 years.
[2022-08-23] MEDS: SODIUM CHLORIDE 0.9% 1,000 ML 84 ML IV (09:28)
[2022-08-23 10:06] VITALS: BP 92/64; PULSE 76; RESP 16; TEMP 36.3; O2SAT 93
[2022-08-23 10:11] VITALS: BP 97/67; PULSE 77; RESP 12; O2SAT 95
[2022-08-23 10:16] VITALS: BP 100/72; PULSE 77; RESP 14; O2SAT 97
[2022-08-23 10:21] VITALS: BP 106/75; PULSE 77; RESP 13; TEMP 36.3; O2SAT 95
[2022-08-23 10:24] VITALS: BP 109/74; PULSE 81; RESP 17; O2SAT 99
--- NOTE | 2022-08-23 10:44 | SUR.PHASEII ---
Patient ambulated to wheelchair without difficulty. Tolerated fluids. Provided verbal/written discharge instructions. Patient stated understanding. Discharged by wheel chair in stable condition to private vehicle. See flowsheet for assessment details.
== END 2022-08-23 10:43 | disposition home or self-care (01) ==
PROVIDERS: PCP Family Medicine; Referring Provider Internal Medicine Gastroenterology; Visit Provider Internal Medicine Gastroenterology
PROC: 0DJD8ZZ Inspection of Lower Intestinal Tract, Via Natural or Artificial Opening Endoscopic (ICD-10-PCS; CPT 45378; principal; 2022-08-23 09:30)
DX: Z87.19 Personal history of other diseases of the digestive system (principal); Z09 Encounter for follow-up examination after completed treatment for conditions other than malignant neoplasm; Z20.822 Contact with and (suspected) exposure to COVID-19; G47.33 Obstructive sleep apnea (adult) (pediatric); E66.9 Obesity, unspecified; Z68.32 Body mass index [BMI] 32.0-32.9, adult
CPT/HCPCS: 45380; 87635; C9803; J2704

== ENCOUNTER → 2022-10-14 08:34 | Outpatient (CLI) | payer OTHER, SELFPAY ==
[2021-10-14 08:44] VITALS: BMI 40.6
[2022-10-14 09:46] LABS: Add Manual Diff / Slide Review NO; Basophils Absolute Auto 100 /uL (0-100); Eosinophils Absolute Auto 100 /uL (0-450); Eosinophils Percent Auto 1.4 % (2-4); Hematocrit 42.4 % (41-53); Lymphocytes Absolute Auto 1200 /uL (1100-4500); Lymphocytes Percent Auto 17.9 % (25-40); Mean Corpuscular HGB Conc 33.1 % (30-36); Mean Corpuscular Hemoglobin 28.8 PG (26-34); Monocytes Absolute Auto 600 /uL (0-900); Monocytes Percent Auto 8.5 % (3-14); Neutrophils Absolute Auto 4800 /uL (1500-7000); Neutrophils Percent Auto 71.2 % (50-75); Platelet Count 229 X10^3/uL (150-400); Red Blood Cell Count 4.88 X10^6/uL (4.5-5.9); Red Cell Distribution Width 14.8 % (11.6-14.8); White Blood Cell Count 6.7 X10^3/uL (4.5-11.0)
[2022-10-14 09:57] LABS: Hemoglobin A1C% w Est Avg Glu 5.1 % (4.0-6.0)
== END ==
PROVIDERS: PCP Family Medicine; Referring Provider Family Medicine; Visit Provider Family Medicine
DX: E11.9 Type 2 diabetes mellitus without complications (principal); K51.919 Ulcerative colitis, unspecified with unspecified complications
CPT/HCPCS: 36415; 83036; 85025

== ENCOUNTER → 2023-01-19 08:26 | Outpatient (CLI) | payer OTHER, SELFPAY ==
[2021-10-14 08:44] VITALS: BMI 40.6
[2023-01-19 09:16] LABS: Add Manual Diff / Slide Review NO; Basophils Absolute Auto 0 /uL (0-100); Basophils Percent Auto 0.6 % (0-2); Eosinophils Absolute Auto 100 /uL (0-450); Eosinophils Percent Auto 1.5 % (2-4); Hematocrit 42.7 % (41-53); Hemoglobin 14.3 g/dL (13.5-17.5); Lymphocytes Absolute Auto 1400 /uL (1100-4500); Lymphocytes Percent Auto 17.2 % (25-40); Mean Corpuscular HGB Conc 33.5 % (30-36); Mean Corpuscular Volume 86.7 fL (80-100); Monocytes Absolute Auto 800 /uL (0-900); Monocytes Percent Auto 9.7 % (3-14); Neutrophils Absolute Auto 5800 /uL (1500-7000); Platelet Count 216 X10^3/uL (150-400); Red Blood Cell Count 4.93 X10^6/uL (4.5-5.9); Red Cell Distribution Width 15.4 % (11.6-14.8); White Blood Cell Count 8.1 X10^3/uL (4.5-11.0)
[2023-01-19 09:35] LABS: Alanine Aminotransferase 31 IU/L (<50); Albumin 4.2 g/dL (3.5-5.0); Albumin Globulin Ratio 1.4 (1.0-2.8); Alkaline Phosphatase 70 U/L (38-126); Aspartate Aminotransferase 24 IU/L (17-59); BUN Creatinine Ratio 29.3 (6-22); Bilirubin Total 0.3 mg/dL (0.2-1.3); Blood Urea Nitrogen 22 mg/dL (9-20); Carbon Dioxide 29 mmol/L (22-32); Chloride 105 mmol/L (98-107); Cholesterol 187 mg/dL (140-199); Estimated Glomerular Filt Rate > 60 mL/min (>60); Globulin 3.1 g/dL (1.7-4.1); Glucose 111 mg/dL (80-110); HDL Cholesterol 70 mg/dL (40-60); HEMOLYSIS < 15 (0-50); LDL Cholesterol Calculated 108 mg/dL (<100); Potassium 4.7 mmol/L (3.4-5.1); Sodium 140 mmol/L (137-145); Total Protein 7.3 g/dL (6.3-8.2); Triglycerides 45 mg/dL (35-150)
[2023-01-19 09:46] LABS: Vitamin D 25 Hydroxy (D3) 50.2 ng/mL (30.0-100.0)
[2023-01-22 10:58] LABS: Hemoglobin A1C% w Est Avg Glu 5.4 % (4.0-6.0)
[2023-01-22 11:32] LABS: TSH w/ Reflex to FT4 1.58 uIU/mL (0.47-4.68)
== END ==
PROVIDERS: PCP Family Medicine; Referring Provider Family Medicine; Visit Provider Family Medicine
DX: E11.9 Type 2 diabetes mellitus without complications (principal); E55.9 Vitamin D deficiency, unspecified; G62.9 Polyneuropathy, unspecified; K80.20 Calculus of gallbladder without cholecystitis without obstruction; D68.51 Activated protein C resistance; K51.90 Ulcerative colitis, unspecified, without complications
CPT/HCPCS: 36415; 80053; 80061; 82306; 83036; 84443; 85025

== ENCOUNTER → 2023-05-04 09:40 | Outpatient (CLI) | payer OTHER, SELFPAY ==
[2021-10-14 08:44] VITALS: BMI 40.6
[2023-05-05 04:09] LABS: Labcorp Hemoglobin (Hb) A1c 5.8 % (4.8-5.6)
== END ==
PROVIDERS: PCP Family Medicine; Referring Provider Family Medicine; Visit Provider Family Medicine
DX: E11.9 Type 2 diabetes mellitus without complications (principal)
CPT/HCPCS: 36415; 83036

== ENCOUNTER 2024-06-04 14:50 | Day surgery (SDC) | payer OTHER, SELFPAY ==
[2021-10-14 08:44] VITALS: BMI 40.6
--- NOTE | 2024-06-04 | PATH_ITS ---
[facility] Accession Number: [id number] No. of containers..03 Tissue . 01 Material submitted: . PART A: colon - TRANSVERSE COLON PART B: colon - RIGHT COLON PART C: colon - LEFT COLON . 01 Diagnosis: A. TRANSVERSE COLON, BIOPSY: Colonic mucosa with no significant diagnostic abnormality. Negative for active inflammation, granulomas, dysplasia, and malignancy. . B. RIGHT COLON, BIOPSY: Colonic mucosa with no significant diagnostic abnormality. Negative for active inflammation, granulomas, dysplasia, and malignancy. . C. LEFT COLON, BIOPSY: Colonic mucosa with no significant diagnostic abnormality. Negative for active inflammation, granulomas, dysplasia, and malignancy. [facility] 06/06/2024 1050 Local . 01 Electronically signed: . Miko Grider MD, PhD, Pathologist NPI- [id number] . 01 Gross description: . Part A: TRANSVERSE COLON: Received in formalin are multiple fragment(s) of tee, soft tissue measuring 0.1 x 0.1 x 0.1 cm to 0.3 x 0.3 x 0.2 cm submitted entirely in 1 cassette(s) Part B: RIGHT COLON: Received in formalin are multiple fragment(s) of tee, soft tissue measuring 0.1 x 0.1 x 0.1 cm to 0.3 x 0.3 x 0.2 cm submitted entirely in 1 cassette(s) Part C: LEFT COLON: Received in formalin are multiple fragment(s) of tee, soft tissue measuring 0.1 x 0.1 x 0.1 cm to 0.4 x 0.2 x 0.2 cm submitted entirely in 1 cassette(s) /CHERI 06/05/2024 0115 Local . 01 Pathologist provided ICD-10: K51.00 . 01 CPT . 379987, 072313, 557360 Specimen Comment: A courtesy copy of this report has been sent to [phone] Performed at: [facility] [address], [place], [place] [id number] MD Juan Moe MD Phone: [phone]
[2024-06-04 15:10] VITALS: BMI 44.3
--- NOTE | 2024-06-04 15:20 | PM.HP.1 ---
History of Present Illness History of Present Illness Date Patient Seen: 06/04/24 Chief complaint: SDC Narrative: History of ulcerative colitis with worsening symptoms over the last few months on Entyvio. Need to assess for disease activity. [facility] Medical History (Updated 01/16/22 @ 19:53 by Deana Sahu) Wears glasses Chicken pox (~1984) Tinnitus (~2011) Skin cancer (~2012) Diabetes mellitus (~2020) Obstructive sleep apnea syndrome (~1987) Factor V Leiden (~2009) Ulcerative colitis (~2011) Surgical History (Updated 01/16/22 @ 19:53 by Deana Sahu) Anesthesia History of tonsillectomy History of tracheostomy (~1958) History of surgery History of ventral hernia repair (~01/26/20) Family History (Updated 01/16/22 @ 19:59 by Deana Sahu) Father Heart disease Alcohol abuse Cancer Mother Alcohol abuse Brother Asphyxia Brother Diabetes mellitus Hypertension Mental health problem Alcohol abuse Sister Alcohol abuse Grandfather No problems noted. Grandmother Morbid obesity Grandfather Cancer Heart disease Social History household members: none Smoking Status: Current some day smoker alcohol intake: never Meds Home Medications and Allergies Home Medications Medication Instructions Recorded Confirmed Type acetaminophen 325 mg capsule 650 mg (2 x 325 mg) PO QID PRN 01/28/20 05/04/23 Rx (Tylenol) pain #60 caps mesalamine 1.2 gram tablet,delayed 3.6 g PO DAILY 02/16/21 06/04/24 History release vedolizumab 300 mg intravenous 300 mg IV Q8W 02/16/21 06/04/24 History solution (Entyvio) alpha lipoic acid 600 mg capsule 600 mg PO DAILY 01/13/22 05/04/23 History cholecalciferol (vitamin D3) 10 10 mcg PO DAILY 01/13/22 05/04/23 History mcg (400 unit) capsule ferrous sulfate 325 mg (65 mg 325 mg PO DAILY 01/13/22 05/04/23 History iron) tablet (Iron (ferrous sulfate)) folic acid 1 mg tablet 1,000 mcg PO DAILY 01/13/22 05/04/23 History magnesium 250 mg tablet 250 mg PO DAILY 01/13/22 05/04/23 History mecobalamin (vitamin B12) 1,000 1,000 mcg PO BID 01/13/22 05/04/23 History mcg chewable tablet (B12 Active) vitamin B complex-folic acid ER tab PO 01/13/22 05/04/23 History 400 mcg tablet,extended release Continuous Glucose Monitor #1 ea 01/29/23 05/04/23 Rx Continuous Glucose Monitor Sensor #1 ea 01/29/23 05/04/23 Rx tadalafil 5 mg tablet (Cialis) 5 mg PO DAILY #90 tabs 07/02/23 06/04/24 Rx gabapentin 300 mg capsule 300 mg PO TID PRN neuropathy #270 01/01/24 06/04/24 Rx caps Allergies Allergy/AdvReac Type Severity Reaction Status Date / Time No Known Allergies Allergy Verified 06/04/24 15:07 Exam Narrative Exam Narrative: Oropharynx free of lesions Chest clear to auscultation percussion Cardiac exam reveals no S3 or murmur Assessment & Plan Assessment & Plan narrative: History of ulcerative colitis need to check for disease activity. Risks, benefits, alternatives have been explained. Time-Based Coding :: [TOTAL MINUTES] spent with patient and on the chart (including review of chart, obtaining history, exam, reviewing outside data, placing orders, documenting exam and treatment plan, and counseling patient) on [DATE].
--- NOTE | 2024-06-04 15:21 | PM.OP.COLON ---
Operative Date/Time/Diagnoses Date of procedure: 06/04/24 Pre-op diagnosis: See indication and findings Procedure & Clinicians Study performed: Colonoscopy Indications: Disease activity assessment with a history of ulcerative colitis Surgeon: Armando Morales Procedure Notes Procedure in detail: After informed consent was obtained the patient was placed in left lateral decubitus position. The video colonoscope was introduced the rectum slowly advanced cecum. On slow withdrawal mucosa was carefully examined. The scope was removed. The patient tolerated procedure well. Blood loss none Complications none Sedation mac Findings 1. Severe pseudopolyposis of the left colon and sigmoid colon but without any clear-cut identifiable areas of inflammation. Two biopsies taken every 10 cm 2. Reasonably normal transverse colon with patchy erythema and inflammation in the right colon. Two biopsies taken every 10 cm Very little active disease here though there may be some particularly in the right colon. Patient should remain on current medications and get in touch with his primary care doctor Torrie
[2024-06-04] MEDS: LACTATED RINGERS 1,000 ML 42 ML IV (15:22)
[2024-06-04 15:23] VITALS: BP 145/95; PULSE 107; RESP 16; TEMP 36.6; O2SAT 96
[2024-06-04 15:50] VITALS: BP 143/86; PULSE 80; RESP 12; TEMP 37.1; O2SAT 94
[2024-06-04 15:56] VITALS: BP 122/81; PULSE 77; RESP 15; TEMP 37; O2SAT 94
[2024-06-04 16:00] VITALS: BP 135/89; PULSE 84; RESP 11; TEMP 37; O2SAT 97
== END 2024-06-04 16:15 | disposition home or self-care (01) ==
PROVIDERS: PCP Family Medicine; Referring Provider Internal Medicine Gastroenterology; Visit Provider Internal Medicine Gastroenterology
PROC: 0DJD8ZZ Inspection of Lower Intestinal Tract, Via Natural or Artificial Opening Endoscopic (ICD-10-PCS; CPT 45378; principal; 2024-06-04 15:30)
DX: K51.00 Ulcerative (chronic) pancolitis without complications (principal)
CPT/HCPCS: 45380; J2704

== ENCOUNTER → 2024-07-25 07:47 | Outpatient (CLI) | payer OTHER, SELFPAY ==
[2021-10-14 08:44] VITALS: BMI 40.6
[2024-07-25 09:00] LABS: Add Manual Diff / Slide Review NO; Basophils Absolute Auto 100 /uL (0-100); Basophils Percent Auto 1.1 % (0-2); Eosinophils Absolute Auto 200 /uL (0-450); Hematocrit 43.4 % (41-53); Hemoglobin 14.3 g/dL (13.5-17.5); Lymphocytes Absolute Auto 1400 /uL (1100-4500); Mean Corpuscular Hemoglobin 28.7 PG (26-34); Monocytes Absolute Auto 700 /uL (0-900); Monocytes Percent Auto 8.6 % (3-14); Neutrophils Absolute Auto 6200 /uL (1500-7000); Neutrophils Percent Auto 72.3 % (50-75); Platelet Count 250 X10^3/uL (150-400); Red Blood Cell Count 4.99 X10^6/uL (4.5-5.9); Red Cell Distribution Width 14.8 % (11.6-14.8); White Blood Cell Count 8.5 X10^3/uL (4.5-11.0)
[2024-07-25 09:21] LABS: Hemoglobin A1C% w Est Avg Glu 7.8 % (4.0-6.0)
[2024-07-25 09:24] LABS: Alanine Aminotransferase 23 IU/L (<50); Albumin 3.9 g/dL (3.5-5.0); Albumin Globulin Ratio 1.2 (1.0-2.8); Alkaline Phosphatase 75 U/L (38-126); Aspartate Aminotransferase 23 IU/L (17-59); BUN Creatinine Ratio 14.8 (6-22); Bilirubin Total 0.7 mg/dL (0.2-1.3); Blood Urea Nitrogen 12 mg/dL (9-20); Calcium 9.4 mg/dL (8.4-10.2); Carbon Dioxide 27 mmol/L (22-32); Chloride 102 mmol/L (98-107); Cholesterol 158 mg/dL (140-199); Estimated Glomerular Filt Rate > 60 mL/min (>60); Globulin 3.3 g/dL (1.7-4.1); Glucose 202 mg/dL (80-110); HDL Cholesterol 48 mg/dL (40-60); HEMOLYSIS < 15 (0-50); LDL Cholesterol Calculated 94 mg/dL (<100); Potassium 4.5 mmol/L (3.4-5.1); Sodium 137 mmol/L (137-145); Total Protein 7.2 g/dL (6.3-8.2); Triglycerides 78 mg/dL (35-150)
[2024-07-25 09:48] LABS: Creatinine Urine Random 51.29 mg/dL
[2024-07-25 09:55] LABS: Microalbumin Urine Random < 0.6 mg/dL (0-1.6)
[2024-07-25 10:01] LABS: Prostate Specific Antigen Scrn 6.27 ng/mL (0.1-4.0)
[2024-07-26 07:40] LABS: Apolipoprotein B 77 mg/dL (<90)
== END ==
PROVIDERS: PCP Family Medicine; Referring Provider Family Medicine; Visit Provider Family Medicine
DX: E78.5 Hyperlipidemia, unspecified (principal); E11.9 Type 2 diabetes mellitus without complications; Z12.5 Encounter for screening for malignant neoplasm of prostate
CPT/HCPCS: 36415; 80053; 80061; 82043; 82172; 82570; 83036; 84443; 85025; G0103

== ENCOUNTER → 2024-09-19 09:36 | Outpatient (CLI) | payer OTHER, SELFPAY ==
[2021-10-14 08:44] VITALS: BMI 40.6
[2024-09-19 11:59] LABS: Prostate Specific Antigen 6.33 ng/mL (0.10-4.00)
== END ==
LOC: LAB 09:37
PROVIDERS: PCP Family Medicine; Referring Provider Urology; Visit Provider Urology
DX: N40.1 Benign prostatic hyperplasia with lower urinary tract symptoms (principal); R97.20 Elevated prostate specific antigen [PSA]; R39.14 Feeling of incomplete bladder emptying
CPT/HCPCS: 36415; 84153

== ENCOUNTER → 2024-10-11 08:57 | Outpatient (CLI) | payer OTHER, SELFPAY ==
[2021-10-14 08:44] VITALS: BMI 40.6
[2024-10-11 10:28] LABS: Alanine Aminotransferase 34 IU/L (<50); Albumin Globulin Ratio 1.2 (1.0-2.8); Alkaline Phosphatase 71 U/L (38-126); Aspartate Aminotransferase 27 IU/L (17-59); BUN Creatinine Ratio 19.4 (6-22); Bilirubin Total 0.6 mg/dL (0.2-1.3); Blood Urea Nitrogen 14 mg/dL (9-20); Calcium 9.5 mg/dL (8.4-10.2); Carbon Dioxide 25 mmol/L (22-32); Chloride 106 mmol/L (98-107); Estimated Glomerular Filt Rate > 60 mL/min (>60); Globulin 3.3 g/dL (1.7-4.1); Glucose 198 mg/dL (80-110); HEMOLYSIS 18 (0-50); Hemoglobin A1C% w Est Avg Glu 7.7 % (4.0-6.0); Potassium 4.8 mmol/L (3.4-5.1); Sodium 138 mmol/L (137-145); Total Protein 7.3 g/dL (6.3-8.2)
== END ==
PROVIDERS: PCP Family Medicine; Referring Provider Family Medicine; Visit Provider Family Medicine
DX: E11.9 Type 2 diabetes mellitus without complications (principal)
CPT/HCPCS: 36415; 80053; 83036

== ENCOUNTER → 2024-10-12 13:23 | Outpatient (CLI) | payer OTHER, SELFPAY ==
[2021-10-14 08:44] VITALS: BMI 40.6
--- NOTE | 2024-10-12 13:23 | DI.MRI.S_ITS ---
PROCEDURE: MR PELIS WO/W CON INDICATIONS: 69 y/o M w/ elevated PSA TECHNIQUE: Coronal HASTE, axial T1 FSE with fat saturation, 3-plane nonbreath-hold T2 FSE. After the administration of contrast, dynamic axial, delayed axial and coronal VIBE or 2-D FLASH with fat saturation through the pelvis. Diffusion weighted imaging and ADC was performed. COMPARISON: None. FINDINGS: Image quality: Overall diagnostic, however diffusion-weighted images are moderately degraded by rectal gas artifact Prostate: 4.6 x 3.1 x 5.2 cm. Estimated volume is 39 cc. Estimated PSA density is 0.171 Transitional zone heterogenous nodules are present, either well encapsulated or mostly encapsulated, compatible with PI-RADS 1 or 2 likely BPH nodules. At the left apex peripheral zone, there is a 9 x 7 x 8 mm lesion (6/16, 5/18). T2 score 4. DWI score 3. DCE positive. PI-RADS 4. Genitourinary system: Seminal vesicles appear clear. No definite extracapsular disease. Trabeculated bladder with diverticula, likely from chronic obstruction. Bowel and peritoneum: No evidence of small bowel obstruction. No pathologic ascites. Nodes and vessels: No aneurysmal vessel identified. No pathologic lymph nodes by size criteria. Soft tissues: There are fat containing small inguinal hernias. Bones: No suspicious osseous enhancement. IMPRESSION: Small PI-RADS 4 lesion at the left apex peripheral zone. No extracapsular disease, seminal vesicle involvement, or pathologic lymph nodes in the field of view by size criteria. The diffusion-weighted images are moderately degraded by rectal gas artifact. Dictated by: David Salguero M.D. on 10/13/2024 at 10:40 Approved by: David Salguero M.D. on 10/13/2024 at 10:46
== END ==
PROVIDERS: PCP Family Medicine; Referring Provider Urology; Visit Provider Urology
DX: N42.9 Disorder of prostate, unspecified (principal); R97.20 Elevated prostate specific antigen [PSA]; N32.89 Other specified disorders of bladder; N32.3 Diverticulum of bladder; K40.90 Unilateral inguinal hernia, without obstruction or gangrene, not specified as recurrent
CPT/HCPCS: 72197; A9579

== ENCOUNTER → 2024-12-26 09:33 | Outpatient (CLI) | payer OTHER, SELFPAY ==
[2021-10-14 08:44] VITALS: BMI 40.6
[2024-12-26 10:43] LABS: Estimated Glomerular Filt Rate > 60 mL/min (>60)
== END ==
PROVIDERS: PCP Family Medicine; Referring Provider Urology; Visit Provider Urology
DX: R97.20 Elevated prostate specific antigen [PSA] (principal)
CPT/HCPCS: 36415; 82565

== ENCOUNTER → 2025-01-02 09:26 | Outpatient (CLI) | payer OTHER, SELFPAY ==
[2021-10-14 08:44] VITALS: BMI 40.6
--- NOTE | 2025-01-02 09:27 | DI.NM.S_ITS ---
PROCEDURE: NM BONE SCAN WHOLE BODY RADIOPHARMACEUTICAL: 20.1 mCi Tc-99m MDP IV. INDICATIONS: 69 y/o M w/ newly diagnosed prostate cancer TECHNIQUE: Delayed whole-body scintigrams were obtained approximately 3-4 hours after intravenous injection of radiotracer. Anterior and posterior views were acquired from vertex to feet. Additional left and right oblique views of the pelvis were obtained. COMPARISON: [facility], CT, CT CHEST ABD PEL W CON, 01/02/2025, 10:35. FINDINGS: Upper and lower extremity degenerative changes are present. The distended bladder obscures the pelvis however. Focal mild uptake is seen in the right maxilla, favored to be dental disease. Mild focal uptake is seen in the right mid thoracic costovertebral junction, which may be degenerative. Attention on follow-up. IMPRESSION: No definite disseminated metastases. Other findings above may be inflammatory/degenerative, attention on follow-up. Dictated by: David Salguero M.D. on 01/02/2025 at 16:00 Approved by: David Salguero M.D. on 01/02/2025 at 16:13
--- NOTE | 2025-01-02 09:27 | DI.CT.S_ITS ---
PROCEDURE: CT CHEST ABD PEL W CON INDICATIONS: 69 y/o M w/ newly diagnosed prostate cancer TECHNIQUE: After the administration of intravenous contrast, 5 mm thick sections acquired from the lung apices to the symphysis. 5 mm coronal and sagittal reformats were performed, with additional 7 mm MIP reformats through the lungs. For radiation dose reduction, the following was used: automated exposure control, adjustment of mA and/or kV according to patient size. COMPARISON: [facility], CT, CT ABDOMEN PELVIS W CON, 01/25/2020, 23:54. [facility], MR, MR PELVIS WO/W CON, 10/12/2024, 13:43. [facility], NM, NM BONE SCAN WHOLE BODY, 01/02/2025, 9:50. FINDINGS: Image quality: Excellent. CHEST: Lower Neck: No enlarged lymph nodes. Thyroid: No thyroid nodules which require sonographic follow up, per consensus guidelines. Axillae: No enlarged lymph nodes. Chest Wall: Unremarkable. Lungs and Pleura: No pneumothorax or pleural effusions. No consolidation or suspicious nodules. Heart: Heart size is normal. No pericardial effusion. Thoracic Vessels: The aorta and pulmonary arteries demonstrate normal size. Mediastinum and Liz: No enlarged lymph nodes. Esophagus: No wall thickening. No hiatal hernia. ABDOMEN: Liver: No solid mass. The liver is diffusely prominently fatty infiltrated and mildly enlarged measuring up to 21 cm craniocaudad. Gallbladder: Faintly calcified gallstones are present within the gallbladder lumen but no biliary distension or gallbladder inflammation is associated. Biliary ducts: No biliary dilation. Pancreas: No ductal dilation. Spleen: Size is within normal limits. Adrenal Glands: No adrenal nodules. Kidneys and Ureters: No hydronephrosis. No solid mass. No complex renal cystic lesion which requires follow up. Note is made of a 7 mm maximal dimension right mid kidney nonobstructive calculus measuring up to 1153 Hounsfield units. Stomach and Bowel: Normal colonic caliber, without significant wall thickening. Peritoneum: No abnormal intraperitoneal fluid. No free air. Ventral Wall: A small periumbilical ventral hernia is present at the midline, containing omental fat showing no evidence of incarceration or strangulation.. Abdominal Nodes: No retroperitoneal or mesenteric adenopathy by size criteria. Vessels: Aorta and inferior vena cava are normal in size. PELVIS: Pelvic Organs: Unremarkable. Bladder: No bladder wall thickening, accounting for underdistention. A small left-sided Esha ureteral diverticulum is seen without obstructive influence on the adjacent ureter. Pelvic Nodes: No enlarged lymph nodes. Miscellaneous: No inguinal hernias are seen. Bones: No aggressive osseous abnormality. No suspicion for presence of osseous metastatic disease. IMPRESSION: 1. Prostate is not enlarged, no discrete malignant-appearing mass emanating from the prostate is seen. No regional adenopathy. No distant metastatic disease found. 2. Hepatomegaly with relatively prominent diffuse fatty infiltration throughout the liver but without splenomegaly, or varices or ascites. 3. Faintly calcified gallstones within the gallbladder lumen. 7 mm maximal dimension nonobstructive calculus within the collecting system of the right mid kidney. Non incarcerated non strangulated small omental hernia, periumbilical. Dictated by: Roberto Carlos Matthews M.D. on 01/03/2025 at 9:05 Approved by: Roberto Carlos Matthews M.D. on 01/03/2025 at 9:15
== END ==
PROVIDERS: PCP Family Medicine; Referring Provider Urology; Visit Provider Urology
DX: C61 Malignant neoplasm of prostate (principal); N20.0 Calculus of kidney; K43.9 Ventral hernia without obstruction or gangrene; N28.89 Other specified disorders of kidney and ureter; K76.0 Fatty (change of) liver, not elsewhere classified; K80.20 Calculus of gallbladder without cholecystitis without obstruction
CPT/HCPCS: 71260; 74177; 78306; A9503; Q9967

== ENCOUNTER → 2025-01-09 11:54 | Outpatient (CLI) | payer OTHER, SELFPAY ==
[2021-10-14 08:44] VITALS: BMI 40.6
[2025-01-09 13:15] LABS: Hemoglobin A1C% w Est Avg Glu 7.2 % (4.0-6.0)
[2025-01-09 13:20] LABS: Alanine Aminotransferase 37 IU/L (<50); Albumin 4.5 g/dL (3.5-5.0); Albumin Globulin Ratio 1.3 (1.0-2.8); Alkaline Phosphatase 70 U/L (38-126); Aspartate Aminotransferase 33 IU/L (17-59); BUN Creatinine Ratio 16.9 (6-22); Bilirubin Total 0.7 mg/dL (0.2-1.3); Blood Urea Nitrogen 12 mg/dL (9-20); Calcium 9.1 mg/dL (8.4-10.2); Carbon Dioxide 21 mmol/L (22-32); Chloride 103 mmol/L (98-107); Estimated Glomerular Filt Rate > 60 mL/min (>60); Globulin 3.4 g/dL (1.7-4.1); Glucose 190 mg/dL (80-110); HEMOLYSIS 17 (0-50); Sodium 136 mmol/L (137-145); Total Protein 7.9 g/dL (6.3-8.2)
== END ==
PROVIDERS: PCP Family Medicine; Referring Provider Family Medicine; Visit Provider Family Medicine
DX: E11.9 Type 2 diabetes mellitus without complications (principal); N40.0 Benign prostatic hyperplasia without lower urinary tract symptoms; K51.90 Ulcerative colitis, unspecified, without complications
CPT/HCPCS: 36415; 80053; 83036

== ENCOUNTER → 2025-01-30 11:24 | Outpatient (CLI) | payer OTHER, SELFPAY ==
[2021-10-14 08:44] VITALS: BMI 40.6
[2025-01-30 12:40] LABS: Add Manual Diff / Slide Review NO; Basophils Absolute Auto 0 /uL (0-100); Basophils Percent Auto 0.6 % (0-2); Eosinophils Absolute Auto 200 /uL (0-450); Hematocrit 45.1 % (41-53); Hemoglobin 14.8 g/dL (13.5-17.5); Lymphocytes Absolute Auto 1800 /uL (1100-4500); Lymphocytes Percent Auto 20.3 % (25-40); Mean Corpuscular HGB Conc 32.7 % (30-36); Mean Corpuscular Hemoglobin 28.7 PG (26-34); Mean Corpuscular Volume 87.8 fL (80-100); Monocytes Absolute Auto 700 /uL (0-900); Monocytes Percent Auto 8.1 % (3-14); Neutrophils Absolute Auto 6100 /uL (1500-7000); Platelet Count 249 X10^3/uL (150-400); Red Blood Cell Count 5.14 X10^6/uL (4.5-5.9); Red Cell Distribution Width 14.6 % (11.6-14.8); White Blood Cell Count 8.8 X10^3/uL (4.5-11.0)
[2025-01-30 13:04] LABS: Alanine Aminotransferase 35 IU/L (<50); Albumin 4.1 g/dL (3.5-5.0); Albumin Globulin Ratio 1.3 (1.0-2.8); Alkaline Phosphatase 71 U/L (38-126); Aspartate Aminotransferase 27 IU/L (17-59); BUN Creatinine Ratio 18.6 (6-22); Bilirubin Total 0.7 mg/dL (0.2-1.3); Blood Urea Nitrogen 13 mg/dL (9-20); Calcium 9.3 mg/dL (8.4-10.2); Carbon Dioxide 24 mmol/L (22-32); Chloride 105 mmol/L (98-107); Estimated Glomerular Filt Rate > 60 mL/min (>60); Globulin 3.2 g/dL (1.7-4.1); Glucose 187 mg/dL (80-110); HEMOLYSIS < 15 (0-50); Potassium 4.8 mmol/L (3.4-5.1); Sodium 138 mmol/L (137-145); Total Protein 7.3 g/dL (6.3-8.2)
[2025-01-30 13:36] LABS: Prostate Specific Antigen 7.75 ng/mL (0.10-4.00)
[2025-01-30 16:23] LABS: Hemoglobin A1C% w Est Avg Glu 7.3 % (4.0-6.0)
== END ==
PROVIDERS: PCP Family Medicine; Referring Provider Family Medicine; Visit Provider Family Medicine
DX: C61 Malignant neoplasm of prostate (principal); N40.1 Benign prostatic hyperplasia with lower urinary tract symptoms; E11.9 Type 2 diabetes mellitus without complications; K51.90 Ulcerative colitis, unspecified, without complications
CPT/HCPCS: 36415; 80053; 83036; 84153; 85025

== ENCOUNTER → 2025-03-06 14:42 | Outpatient (CLI) | payer OTHER, SELFPAY ==
[2021-10-14 08:44] VITALS: BMI 40.6
== END ==
LOC: LAB 14:43
PROVIDERS: PCP Family Medicine; Visit Provider Urology
DX: N40.1 Benign prostatic hyperplasia with lower urinary tract symptoms (principal)
CPT/HCPCS: 87086

== ENCOUNTER → 2025-04-10 06:57 | Outpatient (CLI) | payer OTHER, SELFPAY ==
[2021-10-14 08:44] VITALS: BMI 40.6
[2025-04-10 07:42] LABS: Add Manual Diff / Slide Review NO; Basophils Absolute Auto 0 /uL (0-100); Basophils Percent Auto 0.5 % (0-2); Eosinophils Absolute Auto 200 /uL (0-450); Eosinophils Percent Auto 2.4 % (2-4); Hematocrit 43.6 % (41-53); Hemoglobin 14.3 g/dL (13.5-17.5); Lymphocytes Absolute Auto 2000 /uL (1100-4500); Lymphocytes Percent Auto 19.8 % (25-40); Mean Corpuscular HGB Conc 32.7 % (30-36); Mean Corpuscular Hemoglobin 28.6 PG (26-34); Mean Corpuscular Volume 87.3 fL (80-100); Monocytes Absolute Auto 800 /uL (0-900); Monocytes Percent Auto 7.7 % (3-14); Neutrophils Absolute Auto 6900 /uL (1500-7000); Neutrophils Percent Auto 69.6 % (50-75); Platelet Count 251 X10^3/uL (150-400); Red Cell Distribution Width 14.5 % (11.6-14.8); White Blood Cell Count 9.9 X10^3/uL (4.5-11.0)
[2025-04-10 07:51] LABS: Hemoglobin A1C% w Est Avg Glu 7.9 % (4.0-6.0)
[2025-04-10 08:01] LABS: Alanine Aminotransferase 48 IU/L (<50); Albumin 3.9 g/dL (3.5-5.0); Albumin Globulin Ratio 1.2 (1.0-2.8); Alkaline Phosphatase 78 U/L (38-126); Aspartate Aminotransferase 32 IU/L (17-59); BUN Creatinine Ratio 19.7 (6-22); Bilirubin Total 0.8 mg/dL (0.2-1.3); Blood Urea Nitrogen 14 mg/dL (9-20); Calcium 9.2 mg/dL (8.4-10.2); Carbon Dioxide 21 mmol/L (22-32); Chloride 105 mmol/L (98-107); Estimated Glomerular Filt Rate > 60 mL/min (>60); Globulin 3.2 g/dL (1.7-4.1); Glucose 233 mg/dL (70-99); HEMOLYSIS 20 (0-50); Potassium 4.7 mmol/L (3.4-5.1); Sodium 137 mmol/L (137-145); Total Protein 7.1 g/dL (6.3-8.2)
[2025-04-10 08:05] LABS: C-Reactive Protein Quant 1.4 mg/dL (<1.0)
[2025-04-10 08:30] LABS: TSH w/ Reflex to FT4 2.84 uIU/mL (0.47-4.68)
[2025-04-10 09:54] LABS: Creatinine Urine Random 119.28 mg/dL
[2025-04-10 10:13] LABS: Microalbumin Urine Random 43.7 mg/dL (0-1.6)
[2025-04-13 21:07] LABS: QuantiFERON Mitogen Value >10.00 IU/mL (.); QuantiFERON Nil Value 0.03 IU/mL (.); QuantiFERON TB Gold Plus Negative (Negative); QuantiFERON TB1 Ag Value 0.03 IU/mL (.); QuantiFERON TB2 Ag Value 0.08 IU/mL (.)
== END ==
PROVIDERS: PCP Family Medicine; Referring Provider Internal Medicine Gastroenterology; Visit Provider Internal Medicine Gastroenterology
DX: K51.00 Ulcerative (chronic) pancolitis without complications (principal); C61 Malignant neoplasm of prostate; E11.9 Type 2 diabetes mellitus without complications; K51.90 Ulcerative colitis, unspecified, without complications; K51.919 Ulcerative colitis, unspecified with unspecified complications
CPT/HCPCS: 36415; 80053; 82043; 82570; 83036; 84443; 85025; 86140; 86480

== ENCOUNTER → 2025-07-09 11:35 | Outpatient (CLI) | payer OTHER, SELFPAY ==
[2021-10-14 08:44] VITALS: BMI 40.6
[2025-07-09 17:00] LABS: Appearance Urine UA CLEAR; Bilirubin Urine UA NEGATIVE (NEGATIVE); Color Urine UA YELLOW; Glucose Urine UA NEGATIVE (Negative); Ketones Urine UA TRACE (NEGATIVE); Leukocyte Esterase Urine UA 1+ (NEGATIVE); Nitrite Urine UA NEGATIVE (Negative); Occult Blood Urine UA NEGATIVE (Negative); Protein Urine UA TRACE (Negative); Specific Gravity Urine UA 1.020 (1.000-1.035); Urobilinogen Urine UA 0.2 E.U./dL (0.2); pH Urine UA 5.5 (4.5-8.0)
[2025-07-09 17:07] LABS: Culture Indicated Urine Specimen Cultured
== END ==
PROVIDERS: PCP Family Medicine; Visit Provider Urology
DX: N40.1 Benign prostatic hyperplasia with lower urinary tract symptoms (principal)
CPT/HCPCS: 81001; 87086

== ENCOUNTER → 2025-07-17 11:35 | Outpatient (CLI) | payer OTHER, SELFPAY ==
[2021-10-14 08:44] VITALS: BMI 40.6
[2025-07-17 12:51] LABS: Hemoglobin A1C% w Est Avg Glu 7.2 % (4.0-6.0)
== END ==
PROVIDERS: PCP Family Medicine; Referring Provider Family Medicine; Visit Provider Family Medicine
DX: C61 Malignant neoplasm of prostate (principal); E11.9 Type 2 diabetes mellitus without complications; K51.919 Ulcerative colitis, unspecified with unspecified complications
CPT/HCPCS: 36415; 83036

== ENCOUNTER → 2025-09-02 12:17 | Outpatient (CLI) | payer OTHER, SELFPAY ==
[2021-10-14 08:44] VITALS: BMI 40.6
[2025-09-02 13:45] LABS: Prostate Specific Antigen 0.064 ng/mL (0.10-4.00)
== END ==
PROVIDERS: PCP Family Medicine; Referring Provider Urology; Visit Provider Urology
DX: C61 Malignant neoplasm of prostate (principal)
CPT/HCPCS: 36415; 84153

== ENCOUNTER → 2025-10-22 06:55 | Outpatient (CLI) | payer OTHER, SELFPAY ==
[2021-10-14 08:44] VITALS: BMI 40.6
[2025-10-22 07:28] LABS: Hemoglobin A1C% w Est Avg Glu 7.6 % (4.0-6.0)
[2025-10-22 07:47] LABS: Alanine Aminotransferase 30 IU/L (<50); Albumin 4.0 g/dL (3.5-5.0); Albumin Globulin Ratio 1.3 (1.0-2.8); Alkaline Phosphatase 89 U/L (38-126); Blood Urea Nitrogen 13 mg/dL (9-20); Calcium 9.5 mg/dL (8.4-10.2); Carbon Dioxide 23 mmol/L (22-32); Chloride 107 mmol/L (98-107); Estimated Glomerular Filt Rate > 60 mL/min (>60); Globulin 3.2 g/dL (1.7-4.1); Glucose 218 mg/dL (70-99); HEMOLYSIS < 15 (0-50); Potassium 4.5 mmol/L (3.4-5.1); Sodium 140 mmol/L (137-145); Total Protein 7.2 g/dL (6.3-8.2)
[2025-10-22 08:17] LABS: Microalbumi Creatinin Ratio Ur 54.0 ug/mg CR (<30)
[2025-10-22 08:18] LABS: Prostate Specific Antigen < 0.064 ng/mL (0.10-4.00)
== END ==
PROVIDERS: Urology; PCP Family Medicine; Referring Provider Family Medicine; Visit Provider Family Medicine
DX: C61 Malignant neoplasm of prostate (principal); E11.9 Type 2 diabetes mellitus without complications; K51.919 Ulcerative colitis, unspecified with unspecified complications
CPT/HCPCS: 36415; 80053; 82043; 82570; 83036; 84153